=== PATIENT | male | born 1955 | race Caucasian/White ===

== ENCOUNTER 2016-12-29 17:14 | Emergency (ER) | payer MEDICARE ==
[~2016-12-29] VITALS: Ht 172.7 cm; Wt 85.0 kg
[~2016-12-29 17:14] MED LIST: Z.0.NO CURRENT MEDS
[2016-12-29 17:19] VITALS: BP 141/98; PULSE 94; RESP 16; TEMP 99.1; O2SAT 94
--- NOTE | 2016-12-29 17:26 | PD ---
Physical Exam Date Seen by Provider: Dec 29, 2016 Time Seen by Provider: 17:22 Narrative 61 YOWM C/O FALLING,CHRONIC PAIN, ALCOHOLISM. NO SI OR HI VSS. AWAITING BED PLACEMENT Data Data Last Documented VS Vital Signs Date Time Temp Pulse Resp B/P Pulse Ox O2 Delivery O2 Flow Rate FiO2 12/29/16 17:19 99.1 94 16 141/98 94 MDM Medical Record Reviewed: Yes Supervised Visit with SAHIL: Yes Esteban Chavez Dec 29, 2016 17:26
[2016-12-29 18:42] VITALS: BP 112/92; PULSE 94; RESP 18; O2SAT 97
[2016-12-29] MEDS ORDERED: CLON0.5T PO (18:42)
[2016-12-29] MEDS ORDERED: SODIUM CHLOR 0.9% 1000 ML INJ 1,000 ML IV SCH (18:53)
[2016-12-29] MEDS ORDERED: SODIUM CHLORIDE 0.9% FLUSH 10 ML FLUSH IVF PRN (19:00)
--- NOTE | 2016-12-29 19:10 | PD ---
HPI Chief Complaint: Pain: Acute or Chronic Time Seen by Provider: 18:36 Travel History International Travel<30 days: No Contact w/Intl Traveler<30days: No Traveled to known affect area: No History of Present Illness HPI The patient is a 61-year-old male who presents to the emergency department for bilateral flank pain and generalized weakness. The patient has a history of alcohol abuse and previous central pontine demyelinolysis. The patient also has a history of an extensive DVT that extended from his leg up into the abdomen. The patient states he was placed on anticoagulants, Coumadin , but was taken off of the Coumadin. The patient does have a history of multiple falls according to the family member. The patient is a 3 month history of increasing generalized weakness with difficulty getting out of the wheelchair at home. The patient states he mostly lies in bed, gets around the house in a wheelchair, but continues to drink daily. The patient states he had 2 glasses of wine earlier today. The patient's primary physician is Dr. Gonzalez. The patient denies any acute chest pain, shortness of breath, nausea, vomiting, but does complain of bilateral flank pain as well as generalized weakness. He does note he has fallen several times and struck his head, but denies any known loss of consciousness. PFSH Past Medical History Cancer: Yes (PROSTATE W/RADIATION) Cardiovascular Problems: Yes Congestive Heart Failure: Yes Cirrhosis: Yes Cerebrovascular Accident: Yes Diabetes: Yes Diminished Hearing: No Hypertension: Yes Respiratory: Yes Radiation Therapy: Yes (FOR PROSTATE CA) Past Surgical History Genitourinary Surgery: Yes (PROSTATECTOMY) Other Surgery: Yes ("about 30 back, nose, throat, hernia surgerys") Social History Alcohol Use: Yes (4-5 cups wine) Tobacco Use: Yes Substance Use: No Allergies-Medications (Allergen,Severity, Reaction): Coded Allergies: No Known Allergies (Verified , 01/30/10) Reported Meds & Prescriptions Reported Meds & Active Scripts Active Reported Clonazepam 0.5 Mg Tab 0.5 Mg PO TID Review of Systems Except as stated in HPI: all other systems reviewed are Neg HENT: Positive: Lightheadedness, No: Headaches Cardiovascular: No: Chest Pain or Discomfort Respiratory: No: Shortness of Breath Gastrointestinal: Positive: Abdominal Pain, No: Nausea, Vomiting Musculoskeletal: Positive: Myalgias, Weakness, Edema Neurologic: Positive: Weakness Physical Exam Narrative GENERAL: Awake, alert, 61-year-old male who appears his stated age and is in no acute respiratory distress. SKIN: Focused skin assessment warm/dry. Multiple areas of new and old appearing ecchymosis over the forearms and the knees bilaterally. Chronic venous stasis changes of lower extremity is bilateral. HEAD: Atraumatic. Normocephalic. EYES: Pupils equal and round. Pupils are 3 mm bilateral and reactive. ENT: No nasal bleeding or discharge. NECK: Trachea midline. No JVD. CARDIOVASCULAR: Regular rate and rhythm. No murmur appreciated. RESPIRATORY: No accessory muscle use. Diminished breath sounds in the bases bilaterally. GASTROINTESTINAL: Abdomen soft, tender bilaterally over the flanks. Positive fluid wave. No rebound tenderness. MUSCULOSKELETAL: Ecchymosis, acute and chronic noted on the forearms and knees. Full range of motion of the upper and lower extremity. Chronic venous stasis changes lower extremities with discoloration of the right foot. Doppler pulses are positive bilaterally. NEUROLOGICAL: Awake and alert. No obvious cranial nerve deficits. Motor grossly within normal limits. Normal speech. Oriented to person and place. Follow simple commands. Back: No visible ecchymosis over the flanks or lumbar thoracic spine. PSYCHIATRIC: Appropriate mood and affect; insight and judgment normal. Data Data Last Documented VS Vital Signs Date Time Temp Pulse Resp B/P Pulse Ox O2 Delivery O2 Flow Rate FiO2 12/29/16 19:15 96 Room Air 12/29/16 18:42 94 18 112/92 12/29/16 17:19 99.1 Orders Electrocardiogram (12/29/16 18:53) Ammonia (12/29/16 18:53) Complete Blood Count With Diff (12/29/16 18:53) Comprehensive Metabolic Panel (12/29/16 18:53) Creatine Kinase (Cpk) (12/29/16 18:53) Prothrombin Time / Inr (Pt) (12/29/16 18:53) Act Partial Throm Time (Ptt) (12/29/16 18:53) Thyroid Stimulating Hormone (12/29/16 18:53) Urinalysis - C+S If Indicated (12/29/16 18:53) Chest, Single Ap (12/29/16 18:53) Ct Brain W/O Iv Contrast(Rout) (12/29/16 18:53) Blood Glucose (12/29/16 18:53) Ecg Monitoring (12/29/16 18:53) Iv Access Insert/Monitor (12/29/16 18:53) Oximetry (12/29/16 18:53) Sodium Chloride 0.9% Flush (Ns Flush) (12/29/16 19:00) Sodium Chlor 0.9% 1000 Ml Inj (Ns 1000 M (12/29/16 18:53) Alcohol (Ethanol) (12/29/16 18:53) Ct Abd/Pel W Iv Contrast(Rout) (12/29/16 ) Iohexol 350 Inj (Omnipaque 350 Inj) (12/29/16 20:34) Morphine Inj (Morphine Inj) (12/29/16 21:45) Ondansetron Inj (Zofran Inj) (12/29/16 21:45) Labs Laboratory Tests Test 12/29/16 12/29/16 16:23 18:47 Ammonia 14 MCMOL/L White Blood Count 4.2 TH/MM3 Red Blood Count 3.40 MIL/MM3 Hemoglobin 13.3 GM/DL Hematocrit 39.0 % Mean Corpuscular Volume 114.6 FL Mean Corpuscular Hemoglobin 39.1 PG Mean Corpuscular Hemoglobin 34.1 % Concent Red Cell Distribution Width 15.6 % Platelet Count 108 TH/MM3 Mean Platelet Volume 7.5 FL Neutrophils (%) (Auto) 73.4 % Lymphocytes (%) (Auto) 19.2 % Monocytes (%) (Auto) 6.6 % Eosinophils (%) (Auto) 0.3 % Basophils (%) (Auto) 0.5 % Neutrophils # (Auto) 3.1 TH/MM3 Lymphocytes # (Auto) 0.8 TH/MM3 Monocytes # (Auto) 0.3 TH/MM3 Eosinophils # (Auto) 0.0 TH/MM3 Basophils # (Auto) 0.0 TH/MM3 CBC Comment DIFF FINAL Differential Comment Prothrombin Time 12.0 SEC Prothromb Time International 1.1 RATIO Ratio Activated Partial 31.9 SEC Thromboplast Time Sodium Level 134 MEQ/L Potassium Level 4.1 MEQ/L Chloride Level 97 MEQ/L Carbon Dioxide Level 27.3 MEQ/L Anion Gap 10 MEQ/L Blood Urea Nitrogen 7 MG/DL Creatinine 0.56 MG/DL Estimat Glomerular Filtration 148 ML/MIN Rate Random Glucose 90 MG/DL Calcium Level 8.8 MG/DL Total Bilirubin 0.7 MG/DL Aspartate Amino Transf 25 U/L (AST/SGOT) Alanine Aminotransferase 8 U/L (ALT/SGPT) Alkaline Phosphatase 206 U/L Total Creatine Kinase 38 U/L Total Protein 8.1 GM/DL Albumin 2.3 GM/DL Thyroid Stimulating Hormone 3.070 uIU/ML 3rd Gen Ethyl Alcohol Level 3 MG/DL [facility] Medical Decision Making Medical Screen Exam Complete: Yes Emergency Medical Condition: Yes Medical Record Reviewed: Yes Interpretation(s) EKG reveals normal sinus rhythm with a rate in 94. Low QRS voltage precordial leads. Wavy baseline. Laboratory Tests Test 12/29/16 12/29/16 16:23 18:47 Ammonia 14 MCMOL/L White Blood Count 4.2 TH/MM3 Red Blood Count 3.40 MIL/MM3 Hemoglobin 13.3 GM/DL Hematocrit 39.0 % Mean Corpuscular Volume 114.6 FL Mean Corpuscular Hemoglobin 39.1 PG Mean Corpuscular Hemoglobin 34.1 % Concent Red Cell Distribution Width 15.6 % Platelet Count 108 TH/MM3 Mean Platelet Volume 7.5 FL Neutrophils (%) (Auto) 73.4 % Lymphocytes (%) (Auto) 19.2 % Monocytes (%) (Auto) 6.6 % Eosinophils (%) (Auto) 0.3 % Basophils (%) (Auto) 0.5 % Neutrophils # (Auto) 3.1 TH/MM3 Lymphocytes # (Auto) 0.8 TH/MM3 Monocytes # (Auto) 0.3 TH/MM3 Eosinophils # (Auto) 0.0 TH/MM3 Basophils # (Auto) 0.0 TH/MM3 CBC Comment DIFF FINAL Differential Comment Prothrombin Time 12.0 SEC Prothromb Time International 1.1 RATIO Ratio Activated Partial 31.9 SEC Thromboplast Time Sodium Level 134 MEQ/L Potassium Level 4.1 MEQ/L Chloride Level 97 MEQ/L Carbon Dioxide Level 27.3 MEQ/L Anion Gap 10 MEQ/L Blood Urea Nitrogen 7 MG/DL Creatinine 0.56 MG/DL Estimat Glomerular Filtration 148 ML/MIN Rate Random Glucose 90 MG/DL Calcium Level 8.8 MG/DL Total Bilirubin 0.7 MG/DL Aspartate Amino Transf 25 U/L (AST/SGOT) Alanine Aminotransferase 8 U/L (ALT/SGPT) Alkaline Phosphatase 206 U/L Total Creatine Kinase 38 U/L Total Protein 8.1 GM/DL Albumin 2.3 GM/DL Thyroid Stimulating Hormone 3.070 uIU/ML 3rd Gen Ethyl Alcohol Level 3 MG/DL Last Impressions Head CT 12/29/161852 Signed Impressions: Service Date/Time: Thursday, December 29, 2016 20:20 - CONCLUSION: Mild atrophy. No acute findings in the brain. Possible radiopaque foreign body in the soft tissues left supraorbital region. Joseph Phillips MD Chest X-Ray 12/29/161852 Signed Impressions: Service Date/Time: Thursday, December 29, 2016 19:27 - CONCLUSION: Ill-defined opacity in the lower right lung may represent a developing infiltrate. Joseph Phillips MD Abdomen/Pelvis CT 12/29/16 0000 Signed Impressions: Service Date/Time: Thursday, December 29, 2016 20:25 - CONCLUSION: 1. Significant abdominal and pelvic ascites. 2. Small bilateral pleural effusions. Joseph Phillips MD Differential Diagnosis Differential diagnosis includes hyponatremia, dehydration, subdural hemorrhage, retroperitoneal hemorrhage, deconditioning, alcohol abuse, electrolyte abnormality. Narrative Course IV was established, labs are drawn and sent, and the patient was placed on cardiac telemetry monitoring and continuous pulse oximetry monitoring. Alcohol level was sent to lab. CT the brain and CT of the abdomen and pelvis was ordered to evaluate for possible intracranial hemorrhage and intra-abdominal injury. Laboratory evaluation is unremarkable. CT the brain is negative. Chest x-ray reveals questionable atelectasis right base. CT the abdomen and pelvis reveals significant abdominal and pelvic ascites. I had a discussion with the patient, he had a previous paracentesis done approximately 2-3 years ago. I had a discussion with the patient regarding the need to stop drinking alcohol, I will give him paperwork for outpatient therapeutic paracentesis. The patient is advised to return if symptoms worsen or progress. He is advised to stop drinking alcohol. Diagnosis Primary Impression: Ascites Qualified Code: R18.8 - Other ascites Additional Impression: Fatigue Qualified Code: R53.83 - Fatigue, unspecified type Patient Instructions: General Instructions Additional Instructions: Outpatient therapeutic paracentesis. Follow-up with your primary physician. Stop drinking alcohol. Disposition: 01 DISCHARGE HOME Condition: Stable Jurgen Kaufman MD Dec 29, 2016 19:10
[2016-12-29 19:12] LABS: AUTOMATED NEUTROPHIL # 3.1 TH/MM3 (1.8-7.7); BASOPHIL % 0.5 % (0.0-2.0); EOSINOPHIL % 0.3 % (0.0-4.0); HEMO FLAGS DIFF FINAL; LYMPH % 19.2 % (9.0-44.0); LYMPHOCYTE # 0.8 TH/MM3 (1.0-4.8); MEAN CELL VOLUME 114.6 FL (80.0-100.0); MEAN CORPUSCULAR HEMOGLOBIN 39.1 PG (27.0-34.0); MEAN CORPUSCULAR HGB CONC 34.1 % (32.0-36.0); MONO % 6.6 % (0.0-8.0); NEUT % 73.4 % (16.0-70.0); PLATELET COUNT 108 TH/MM3 (150-450); RED CELL DISTRIBUTION WIDTH 15.6 % (11.6-17.2); WHITE BLOOD COUNT 4.2 TH/MM3 (4.0-11.0)
[2016-12-29 19:15] VITALS: O2SAT 96
[2016-12-29 19:25] LABS: APTT (PATIENT) 31.9 SEC (24.3-30.1); INTERNATIONAL NORMALIZED RATIO 1.1 RATIO
[2016-12-29 19:37] LABS: ALKALINE PHOSPHATASE 206 U/L (45-117); ALT (GPT) 8 U/L (12-78); ANION GAP 10 MEQ/L (5-15); AST (GOT) 25 U/L (15-37); BICARBONATE 27.3 MEQ/L (21.0-32.0); BLOOD UREA NITROGEN 7 MG/DL (7-18); CHLORIDE 97 MEQ/L (98-107); GLOMERULAR FILTRATION RATE 148 ML/MIN (>89); POTASSIUM 4.1 MEQ/L (3.5-5.1); SODIUM (NA) 134 MEQ/L (136-145); TOTAL BILIRUBIN ADULT 0.7 MG/DL (0.2-1.0)
[2016-12-29 19:40] LABS: CREATINE KINASE 38 U/L (39-308)
--- NOTE | 2016-12-29 20:11 | RADRPT ---
EXAM DATE/TIME: 12/29/2016 19:27 [facility] COMPARISON: No previous studies available for comparison. INDICATIONS : Short of breath. MEDICAL HISTORY : None. SURGICAL HISTORY : None. ENCOUNTER: Initial ACUITY: 1 day PAIN SCORE: 0/10 LOCATION: Bilateral chest FINDINGS: There is a hazy opacity in the lower right chest which is nonspecific in appearance; this could repre sent a developing infiltrate. Lung markings are seen through this hazy opacity. The left lung is cl ear. Healed fractures posterolateral left 5th to 7th ribs. Both hemidiaphragms are well delineated. No evidence of pneumothorax. CONCLUSION: Ill-defined opacity in the lower right lung may represent a developing infiltrate. Joseph Phillips MD on December 29, 2016 at 20:08 Board Certified Radiologist. This report was verified electronically.
[2016-12-29] MEDS ORDERED: IOHEXOL 350 MG/ML 10 ML VIAL (for RAD DIAG) IV ONE (20:34)
--- NOTE | 2016-12-29 21:20 | RADRPT ---
EXAM DATE/TIME: 12/29/2016 20:20 [facility] COMPARISON: No previous studies available for comparison. INDICATIONS : Multiple falls with head trauma. RADIATION DOSE: 48.13 CTDIvol (mGy) MEDICAL HISTORY : Cerebrovascular disease. Hypertension. SURGICAL HISTORY : None. ENCOUNTER: Initial ACUITY: 1 day PAIN SCALE: 7/10 LOCATION: cranial TECHNIQUE: Multiple contiguous axial images were obtained of the head. Using automated exposure control and adj ustment of the mA and/or kV according to patient size, radiation dose was kept as low as reasonably a chievable to obtain optimal diagnostic quality images. FINDINGS: CEREBRUM: The ventricles and sulci are prominent characteristic of mild central and cortical atrophy.. No evid ence of midline shift, mass lesion, hemorrhage or acute infarction. No extra-axial fluid collections are seen. POSTERIOR FOSSA: The cerebellum and brainstem are intact. The 4th ventricle is midline. The cerebellopontine angle i s unremarkable. EXTRACRANIAL: The visualized portion of the orbits is intact. SKULL: There's a small opacity in the soft tissues of the left supraorbital region suggesting possible radio paque foreign body The calvaria is intact. No evidence of skull fracture. CONCLUSION: Mild atrophy. No acute findings in the brain. Possible radiopaque foreign body in the soft tissues left supraorbital region. Joseph Phillips MD on December 29, 2016 at 21:16 Board Certified Radiologist. This report was verified electronically.
--- NOTE | 2016-12-29 21:24 | RADRPT ---
EXAM DATE/TIME: 12/29/2016 20:25 [facility] COMPARISON: No previous studies available for comparison. INDICATIONS : Multiple falls with bilateral flank pain. IV CONTRAST: 100 cc Omnipaque 350 (iohexol) IV ORAL CONTRAST: No oral contrast ingested. RADIATION DOSE: 16.49 CTDIvol (mGy) MEDICAL HISTORY : Congestive heart failure. Carcinoma, prostate. SURGICAL HISTORY : Prostatectomy. ENCOUNTER: Initial ACUITY: 1 day PAIN SCALE: 9/10 LOCATION: Bilateral flank TECHNIQUE: Volumetric scanning of the abdomen and pelvis was performed. Using automated exposure control and ad justment of the mA and/or kV according to patient size, radiation dose was kept as low as reasonably achievable to obtain optimal diagnostic quality images. FINDINGS: There are mild bilateral pleural effusions. As a significant amount of ascites throughout the abdome n and pelvis. Multiple healed left lower lateral rib fractures. Views osteopenia is present lumbar surgery with laminectomy and lateral fusion masses. The liver, spleen, pancreas stomach kidneys, adrenal glands are grossly intact. Wall calcification n ondistended abdominal aorta and iliac vessels. No dilated loops of small or large bowel. Urinary bl adder margins are smooth. Multiple hemoclips in the central pelvis for from prior prostatectomy. CONCLUSION: 1. Significant abdominal and pelvic ascites. 2. Small bilateral pleural effusions. Joseph Phillips MD on December 29, 2016 at 21:19 Board Certified Radiologist. This report was verified electronically.
[2016-12-29] MEDS ORDERED: MORPHINE SULFATE 4 MG/ML INJ IV PUSH ONE (21:45)
[2016-12-29] MEDS ORDERED: ONDANSETRON HCL 4 MG/2 ML VIAL IV PUSH ONE (21:45)
--- NOTE | 2016-12-30 12:19 | EKG ---
Date Performed: 12/29/2016 Time Performed: 19:08:25 PTAGE: 61 years EKG: Sinus rhythm MARKED LEFT AXIS DEVIATION LOW QRS VOLTAGE IN PRECORDIAL LEADS POSSIBLE ANTERIOR MYOCARDIAL INFARCTI ON ABNORMAL ECG PREVIOUS TRACING : 10/31/2001 10.02 DOCTOR: Polo Mathews Interpretating Date/Time 12/30/2016 12:18:28
== END 2016-12-29 23:29 | disposition home or self-care (01) ==
LOC: NEPA 17:14
DX: R18.8 Other ascites (principal); R53.83 Other fatigue; I10 Essential (primary) hypertension; Z72.0 Tobacco use
CPT/HCPCS: 70450; 71010; 74177; 80053; 80307; 82140; 82550; 84443; 85025; 85610; 85730; 93005; 96374; 96375; 99285; J2270; J2405; J7030; Q9967

== ENCOUNTER 2016-12-31 15:25 | Inpatient (IN) | payer MEDICARE ==
[~2016-12-31] VITALS: Ht 172.7 cm; Wt 86.0 kg
[~2016-12-31 15:25] MED LIST changes: +CLON0.5T PO; -Z.0.NO CURRENT MEDS
[2016-12-31 15:40] VITALS: BP 159/82; PULSE 62; RESP 20; TEMP 97.6; O2SAT 100
--- NOTE | 2016-12-31 16:22 | PD ---
HPI Chief Complaint: Pain: Acute or Chronic Time Seen by Provider: 17:40 Travel History International Travel<30 days: No Contact w/Intl Traveler<30days: No Traveled to known affect area: No History of Present Illness HPI this a 61-year-old gentleman with history of alcoholic liver cirrhosis, diabetes mellitus, who was seen here 2 days ago for the same complaints that he presents for today. The patient reports pain in his shoulder back and general malaise. He states he wants to have his abdomen drained. He denies any fevers , chills. Patient states that he did drink today but only reports 2 sips. When asked why he is back today, he reports he wanted a pain shot. He also reported that he wanted to have his abdomen drained. He denies any fevers, chills. The patient does report that he has a non-productive cough. There is no shortness of breath. He does report worsening weakness that is progressive and chronic. PFSH Past Medical History Hx Anticoagulant Therapy: Yes (COUMADIN ) Cancer: Yes (PROSTATE W/RADIATION) Cardiovascular Problems: Yes Congestive Heart Failure: Yes Cirrhosis: Yes Cerebrovascular Accident: Yes Diabetes: Yes Patient Takes Glucophage: No Diminished Hearing: No Hypertension: Yes Medical other: Yes (PARACENTHESIS ) Respiratory: Yes Immunizations Current: No Radiation Therapy: Yes (FOR PROSTATE CA) Tetanus Vaccination: Unknown Past Surgical History Genitourinary Surgery: Yes (PROSTATECTOMY) Other Surgery: Yes ("about 30 back, nose, throat, hernia surgerys") Social History Alcohol Use: Yes (4-5 cups wine, ETOH ABUSE ) Tobacco Use: Yes (1/2 PPD ) Substance Use: No Allergies-Medications (Allergen,Severity, Reaction): Coded Allergies: No Known Allergies (Verified , 01/30/10) Reported Meds & Prescriptions Reported Meds & Active Scripts Active Reported Clonazepam 0.5 Mg Tab 0.5 Mg PO TID Review of Systems Except as stated in HPI: all other systems reviewed are Neg General / Constitutional: No: Fever, Chills HENT: No: Headaches, Neck Pain Cardiovascular: No: Chest Pain or Discomfort, Palpitations Respiratory: Positive: Cough, No: Shortness of Breath (nonproductive) Gastrointestinal: Positive: Abdominal Pain ([place] swelling but no pain.), No: Nausea, Vomiting, Hematemesis, Hematochezia Genitourinary: Positive: Other (difficulty urinating) Musculoskeletal: Positive: Weakness (generalized weakness), Pain (pain in his left shoulder, low back and hips. These are the same complaints he had when he was seen 2 days ago.) Neurologic: Positive: Weakness (generalized), Slurred Speech (mild), No: Headache, Change in Mentation Physical Exam Narrative GENERAL: Well-nourished, well-developed patient, in no acute respiratory distress.. SKIN: Focused skin assessment warm/dry. HEAD: Normocephalic/atraumatic. EYES: Slight icteric sclera.. No injection or drainage. NECK: Supple, trachea midline. CARDIOVASCULAR: Regular rate and rhythm without murmurs, gallops, or rubs. RESPIRATORY: Breath sounds equal bilaterally. No accessory muscle use. GASTROINTESTINAL: Abdomen soft, non-tender. There is mild fluid wave noted. There is no tense ascites noted. MUSCULOSKELETAL: No cyanosis, or trace lower extremity edema. NEUROLOGICAL: Awake and with slight slurred speech.. Cranial nerves II through XII intact. Motor and sensory grossly within normal limits. With slight slurred speech. Data Data Last Documented VS Vital Signs Date Time Temp Pulse Resp B/P Pulse Ox O2 Delivery O2 Flow Rate FiO2 12/31/16 17:29 68 21 127/77 100 Room Air 12/31/16 15:40 97.6 Orders Complete Blood Count With Diff (12/31/16 15:52) Basic Metabolic Panel (Bmp) (12/31/16 15:52) Hepatic Functional Panel (12/31/16 15:52) Urinalysis - C+S If Indicated (12/31/16 15:52) Iv Access Insert/Monitor (12/31/16 15:52) Ecg Monitoring (12/31/16 15:52) Oximetry (12/31/16 15:52) Alcohol (Ethanol) (12/31/16 15:52) Morphine Inj (Morphine Inj) (12/31/16 16:30) Morphine Inj (Morphine Inj) (12/31/16 18:45) Admit Order (Ed Use Only) (12/31/16 18:31) Labs Laboratory Tests Test 12/31/16 12/31/16 15:45 16:45 White Blood Count 4.6 TH/MM3 Red Blood Count 2.82 MIL/MM3 Hemoglobin 11.8 GM/DL Hematocrit 33.0 % Mean Corpuscular Volume 117.0 FL Mean Corpuscular Hemoglobin 41.9 PG Mean Corpuscular Hemoglobin 35.8 % Concent Red Cell Distribution Width 15.8 % Platelet Count 106 TH/MM3 Mean Platelet Volume 8.2 FL Neutrophils (%) (Auto) 71.9 % Lymphocytes (%) (Auto) 18.0 % Monocytes (%) (Auto) 9.2 % Eosinophils (%) (Auto) 0.1 % Basophils (%) (Auto) 0.8 % Neutrophils # (Auto) 3.3 TH/MM3 Lymphocytes # (Auto) 0.8 TH/MM3 Monocytes # (Auto) 0.4 TH/MM3 Eosinophils # (Auto) 0.0 TH/MM3 Basophils # (Auto) 0.0 TH/MM3 CBC Comment DIFF FINAL Differential Comment Sodium Level 137 MEQ/L Potassium Level 3.8 MEQ/L Chloride Level 101 MEQ/L Carbon Dioxide Level 27.2 MEQ/L Anion Gap 9 MEQ/L Blood Urea Nitrogen 9 MG/DL Creatinine 0.63 MG/DL Estimat Glomerular Filtration 129 ML/MIN Rate Random Glucose 83 MG/DL Calcium Level 8.3 MG/DL Total Bilirubin 0.8 MG/DL Direct Bilirubin 0.3 MG/DL Indirect Bilirubin 0.5 MG/DL Aspartate Amino Transf 23 U/L (AST/SGOT) Alanine Aminotransferase 9 U/L (ALT/SGPT) Alkaline Phosphatase 179 U/L Total Protein 7.7 GM/DL Albumin 2.2 GM/DL Ethyl Alcohol Level 4 MG/DL Urine Color LIGHT-BROWN Urine Turbidity CLEAR Urine pH 6.0 Urine Specific [place] 1.029 Urine Protein 30 mg/dL Urine Glucose (UA) NEG mg/dL Urine Ketones 40 mg/dL Urine Occult Blood TRACE Urine Nitrite NEG Urine Bilirubin NEG Urine Urobilinogen GREATER THAN 12.0 MG/DL Urine Leukocyte Esterase NEG Urine RBC 3 /hpf Urine WBC 1 /hpf Urine Squamous Epithelial <1 /hpf Cells Urine Mucus MOD /lpf Microscopic Urinalysis Comment CULT NOT INDICATED MDM Medical Decision Making Medical Screen Exam Complete: Yes Emergency Medical Condition: Yes Differential Diagnosis Acute exacerbation of chronic pain versus alcohol intoxication versus electrolyte abnormalities versus metabolic arrangement Narrative Course 61-year-old gentleman with a history of liver failure, who presents here with complaints of generalized weakness, muscle skeletal pain, abdominal distention, and multiple falls. The patient has slurred speech and appears to be generally weak appearing. He states he normally uses a walker however he can so weak he can't even use a walker. He sees Dr. Iverson as an outpatient. The patient's hemoglobin dropped greater than 1 point From 2 days ago. Bed side rectal examination showed brown stool that was trace heme positive this was performed in the presence of the nurse, Nora.. There is a call out to the [facility]. Diagnosis Primary Impression: Heme positive stool Additional Impressions: Weakness history of previous CVA. Cirrhosis of liver with ascites Admitting Information Admitting Physician Requests: Admit Errol Weiss MD Dec 31, 2016 16:22
[2016-12-31 16:30] VITALS: BP 131/89; PULSE 77; RESP 24; O2SAT 98
[2016-12-31 16:30] LABS: AUTOMATED NEUTROPHIL # 3.3 TH/MM3 (1.8-7.7); BASOPHIL % 0.8 % (0.0-2.0); EOSINOPHIL % 0.1 % (0.0-4.0); HEMO FLAGS DIFF FINAL; LYMPHOCYTE # 0.8 TH/MM3 (1.0-4.8); MEAN CORPUSCULAR HEMOGLOBIN 41.9 PG (27.0-34.0); MEAN CORPUSCULAR HGB CONC 35.8 % (32.0-36.0); MONO % 9.2 % (0.0-8.0); NEUT % 71.9 % (16.0-70.0); PLATELET COUNT 106 TH/MM3 (150-450); RED BLOOD COUNT 2.82 MIL/MM3 (4.50-5.90); RED CELL DISTRIBUTION WIDTH 15.8 % (11.6-17.2); WHITE BLOOD COUNT 4.6 TH/MM3 (4.0-11.0)
[2016-12-31] MEDS ORDERED: MORPHINE SULFATE 4 MG/ML INJ IV PUSH ONE ×2 (16:30→18:45)
[2016-12-31 16:48] LABS: BICARBONATE 27.2 MEQ/L (21.0-32.0); INDIRECT BILIRUBIN 0.5 MG/DL (0.0-0.8); POTASSIUM 3.8 MEQ/L (3.5-5.1); TOTAL BILIRUBIN ADULT 0.8 MG/DL (0.2-1.0)
[2016-12-31 17:15] LABS: BLOOD, URINE TRACE (NEG); COMMENT (UR) CULT NOT INDICATED; CULTURE IF INDICATED CULT NOT INDICATED; GLUCOSE,URINE NEG (NEG); KETONE, URINE 40 mg/dL (NEG); MUCUS URINE MOD /lpf (OCC); NITRITE,URINE NEG (NEG); SQUAMOUS EPITHELIAL CELL URINE <1 /hpf (0-5)
[2016-12-31 17:29] VITALS: BP 127/77; PULSE 68; RESP 21; O2SAT 100
[2016-12-31 17:31] LABS: URINE COLOR LIGHT-BROWN (YELLW/STRAW)
[2016-12-31 19:00] VITALS: BP 116/75; PULSE 80; RESP 18; O2SAT 97
[2016-12-31] MEDS ORDERED: SODIUM CHLORIDE 0.9% FLUSH 10 ML FLUSH IV FLUSH PRN (19:00)
[2016-12-31] MEDS ORDERED: FLUMAZENIL 0.5 MG/5 ML VIAL IV PUSH PRN ×2 (19:00→23:00)
[2016-12-31] MEDS ORDERED: LORazepam 1 MG TAB PO PRN (19:00)
[2016-12-31] MEDS ORDERED: ONDANSETRON HCL 4 MG/2 ML VIAL IV PRN (19:00)
[2016-12-31] MEDS ORDERED: LORazepam 2 MG/ML VIAL IV PUSH PRN ×7 (19:00→23:00)
[2016-12-31] MEDS ORDERED: LORazepam 2 MG TAB PO PRN ×2 (19:00→23:00)
[2016-12-31] MEDS: SODIUM CHLORIDE 0.9% FLUSH 10 ML FLUSH IV FLUSH SCH (20:53)
--- NOTE | 2016-12-31 22:45 | HHI.HP ---
[facility] Service [facility] Primary Care Physician Kavon Gonzalez MD Admission Diagnosis Heme positive stools, worsening weakness, cirrhosis with ascitis. Diagnoses: (1) Heme positive stool (2) Cirrhosis of liver with ascites (3) Weakness (4) Tobacco abuse (5) Alcohol abuse (6) Frequent falls (7) Type 2 diabetes mellitus Chief Complaint: right shoulder pain, low back pain, abdominal pain/distention - stool heme + in ER Travel History International Travel<30 Days: No Contact w/Intl Traveler <30 Da: No Traveled to Known Affected Are: No History of Present Illness Mr. Mercedes is a 61 y/o male with a history of T2DM (states he checks blood glucose at home and states blood glucose is controlled without medications), CVA , alcoholic cirrhosis, and prostate CA who presented to the ER on 12/31/16 with complaint of right shoulder pain, low back pain, and generalized weakness. His hemoglobin is noted to have dropped from 13.3 on 12/29/2016 to 11.8. Stool was checked in the ER and was trace heme positive. The patient is seen in the CDU. He states that he came here because of severe right shoulder pain that's been present for about 3 weeks and centralized low back pain that is severe and chronic. He reports no increase in lightheadedness and states that he's had chronic lightheadedness for about 7 years. He states that he fell multiple times with the last fall occurring 2 weeks ago. He states he has fallen 20 times in the last few weeks and relates his falls to hypoglycemia from taking metformin. He self discontinued medication about 3 weeks ago. He requires a walker for ambulation but states he is too weak to use a walker at this point. He reports shortness of breath with ambulation. He drinks 4-5 glasses of wine daily but states he's only had 2-3 glasses over the past couple of days. He denies any bloody or tarry stools. He complains of abdomen pain with bloating for "months". Last paracentesis was 3 years ago and he states that afterwards he felt "like a million bucks". . Review of Systems Except as stated in HPI: all other systems reviewed are Neg Past Family Social History Past Medical History Liver cirrhosis Type 2 diabetes mellitus Congestive heart failure CVA Prostate CA - s/p radiation and prostatectomy . Past Surgical History Back surgery x 4 Prostatectomy Uvulectomy Nasal surgery x 2 . Reported Medications Reported Meds & Active Scripts Active Reported Clonazepam 0.5 Mg Tab 0.5 Mg PO TID . Allergies: Coded Allergies: No Known Allergies (Verified , 01/30/10) Active Ordered Medications Current Medications Morphine Sulfate (Morphine Inj) 2 mg ONCE ONCE IV PUSH Last administered on 17:26; Start 12/31/16 at 16:30; Stop 12/31/16 at 16:31; Status DC Morphine Sulfate (Morphine Inj) 4 mg ONCE ONCE IV PUSH Last administered on 19:51; Start 12/31/16 at 18:45; Stop 12/31/16 at 18:46; Status DC Sodium Chloride (NS Flush) 2 ml UNSCH PRN IV FLUSH FLUSH AFTER USING IV ACCESS ; Start 12/31/16 at 19:00 Sodium Chloride (NS Flush) 2 ml BID IV FLUSH Last administered on 12/31/16 20: 53; Start 12/31/16 at 21:00 Ondansetron HCl (Zofran Inj) 4 mg Q6H PRN IV NAUSEA; Start 12/31/16 at 19:00 Flumazenil (Romazicon Inj) 0.2 mg Q1M PRN IV PUSH SEE LABEL COMMENTS; Start 12/31/16 at 19:00 Lorazepam (Ativan) 1 mg Q4H PRN PO CIWA 8 - 10; Start 12/31/16 at 19:00 Lorazepam (Ativan Inj) 1 mg Q4H PRN IV PUSH CIWA 8 - 10; Start 12/31/16 at 19:00 Lorazepam (Ativan) 2 mg Q2H PRN PO CIWA 11-14; Start 12/31/16 at 19:00 Lorazepam (Ativan Inj) 2 mg Q2H PRN IV PUSH CIWA 11-14; Start 12/31/16 at 19:00 Lorazepam (Ativan Inj) 2 mg Q1H PRN IV PUSH CIWA 15-20; Start 12/31/16 at 19:00 Lorazepam (Ativan Inj) 2 mg Q15M PRN IV PUSH CIWA > 20; Start 12/31/16 at 19:00 . Family History Does not report any significant family medical history . Social History Tobacco: smokes 1/2 - 3/4 PPD Alcohol: drinks 2-3 cups of alcohol per day x 2 days; 4-5 cups of alcohol per day - last alcohol intake was prior to presentation in ER "took a couple of sips " . Physical Exam Vital Signs Vital Signs Date Time Temp Pulse Resp B/P Pulse Ox O2 Delivery O2 Flow Rate FiO2 12/31/16 19:00 80 18 116/75 97 Room Air 12/31/16 17:29 68 21 127/77 100 Room Air 12/31/16 16:30 77 24 131/89 98 Room Air 12/31/16 15:40 97.6 62 20 159/82 100 12/31/16 15:40 97.6 62 20 159/82 100 Room Air 12/31/16 15:40 16 Physical Exam GENERAL: This is a well-nourished, well-developed patient, in no apparent distress. SKIN: Cool and dry. Bilateral upper extremities with multiple bruises in various stages of healing HEAD: Atraumatic. Normocephalic. EYES: No scleral icterus. No injection or drainage. ENT: Nose without bleeding, purulent drainage. NECK: Trachea midline. No JVD or lymphadenopathy. CARDIOVASCULAR: Regular rate and rhythm without murmurs, gallops, or rubs. +1-2 + pitting edema bilateral lower extremities - right lower extremity midshin to foot darkly discolored c/w venous insufficiency. RESPIRATORY: Clear to auscultation. Breath sounds equal bilaterally. No wheezes , rales, or rhonchi. GASTROINTESTINAL: Abdomen soft, no guarding, distended with + fluid wave; pain with palpation MUSCULOSKELETAL: Extremities without clubbing, cyanosis, or edema. No calf tenderness. NEUROLOGICAL: Awake and alert. Somewhat slurred speech. . Laboratory Laboratory Tests Test 12/31/16 12/31/16 15:45 16:45 White Blood Count 4.6 Red Blood Count 2.82 Hemoglobin 11.8 Hematocrit 33.0 Mean Corpuscular Volume 117.0 Mean Corpuscular Hemoglobin 41.9 Mean Corpuscular Hemoglobin 35.8 Concent Red Cell Distribution Width 15.8 Platelet Count 106 Mean Platelet Volume 8.2 Neutrophils (%) (Auto) 71.9 Lymphocytes (%) (Auto) 18.0 Monocytes (%) (Auto) 9.2 Eosinophils (%) (Auto) 0.1 Basophils (%) (Auto) 0.8 Neutrophils # (Auto) 3.3 Lymphocytes # (Auto) 0.8 Monocytes # (Auto) 0.4 Eosinophils # (Auto) 0.0 Basophils # (Auto) 0.0 CBC Comment DIFF FINAL Differential Comment Sodium Level 137 Potassium Level 3.8 Chloride Level 101 Carbon Dioxide Level 27.2 Anion Gap 9 Blood Urea Nitrogen 9 Creatinine 0.63 Estimat Glomerular Filtration 129 Rate Random Glucose 83 Calcium Level 8.3 Total Bilirubin 0.8 Direct Bilirubin 0.3 Indirect Bilirubin 0.5 Aspartate Amino Transf 23 (AST/SGOT) Alanine Aminotransferase 9 (ALT/SGPT) Alkaline Phosphatase 179 Total Protein 7.7 Albumin 2.2 Ethyl Alcohol Level 4 Urine Color LIGHT-BROWN Urine Turbidity CLEAR Urine pH 6.0 Urine Specific [place] 1.029 Urine Protein 30 Urine Glucose (UA) NEG Urine Ketones 40 Urine Occult Blood TRACE Urine Nitrite NEG Urine Bilirubin NEG Urine Urobilinogen GREATER THAN 12.0 Urine Leukocyte Esterase NEG Urine RBC 3 Urine WBC 1 Urine Squamous Epithelial <1 Cells Urine Mucus MOD Microscopic Urinalysis Comment CULT NOT INDICATED Result Diagram: 12/31/16 1545 12/31/16 1541 Assessment and Plan Problem List: (1) Heme positive stool ICD Code: R19.5 Status: Acute (2) Cirrhosis of liver with ascites ICD Code: K74.60 Status: Acute (3) Weakness ICD Code: R53.1 Status: Acute (4) Alcohol abuse ICD Code: F10.10 Status: Chronic (5) Tobacco abuse ICD Code: Z72.0 Status: Chronic (6) Type 2 diabetes mellitus ICD Code: E11.9 Status: Chronic (7) Frequent falls ICD Code: R29.6 Status: Acute Assessment and Plan Heme positive stool Anemia - Hemoglobin dropped from 13.3-11.8 - Serial H&H every 6 hours - follow results - Consult gastroenterology - appreciate assistance - Protonix 40 mg IV every 24 hours - Monitor vital signs every 4 hours Thrombocytopenia - Platelet count 106,000 - appears chronic upon review of prior labs and is likely secondary to alcoholism - Repeat CBC in a.m. and follow trends Ascites likely secondary to liver cirrhosis - CT abdomen/pelvis with IV contrast done during last ER visit for 12/29/16 showed significant abdominal and pelvic ascites - patient was supposed to follow up for outpatient paracentesis - We'll consult interventional radiology for paracentesis - assistance appreciated Alcohol abuse - Alcohol withdrawal precautions - Thiamine, multivitamin - we'll check B12 and folate levels - supplement as needed - CIWA protocol Tobacco abuse - Encourage cessation - Nicotine patch - patient aware of potential for nightmares and wants it now regardless Low back and right shoulder pain - Oxycodone 5 mg every 8 hours as needed for pain Frequent falls Weakness - Consult physical therapy for assistance with gait assessment and strengthening to prevent further debility - Consult case management to assist with safe discharge planning Type 2 diabetes mellitus - review of blood glucose levels appear within normal parameters at this time; 83 today and 90 on 12/29/2016 - We will monitor Accu-Cheks before meals and at bedtime - nursing to call for blood glucose less than 80 or greater than 250 DVT prophylaxis - SCDs Written by Eryn Smalls, acting as scribe for Dr. Morel on 12/31/16 at 22:43. patient was seen and examined today. presented with back pain and frequent falls. however was found anemic with heme-positive stool along with ascites. will consult GI and IR( for paracentesis). monitor H/H. consult PT and case management. Discussed Condition With ER physician, patient Physician Certification 2 Midnight Certification Type: Admission for Inpatient Services Order for Inpatient Services The services are ordered in accordance with Medicare regulations or non- Medicare payer requirements, as applicable. In the case of services not specified as inpatient-only, they are appropriately provided as inpatient services in accordance with the 2-midnight benchmark. Estimated LOS (days): 3 days is the estimated time the patient will need to remain in the hospital, assuming treatment plan goals are met and no additional complications. Post-Hospital Plan: Not yet determined Problem Qualifiers (1) Type 2 diabetes mellitus: Eryn Smalls Dec 31, 2016 22:45 Jannie Morel MD Dec 31, 2016 23:02
[2016-12-31] MEDS ORDERED: ONDANSETRON HCL 4 MG/2 ML VIAL IV PUSH PRN (23:00)
[2016-12-31] MEDS ORDERED: PANTOPRAZOLE SODIUM 40 MG VIAL IV PUSH SCH ×2 (23:00→23:15)
[2016-12-31 23:24] VITALS: BP 141/58; PULSE 68; RESP 18; TEMP 98.7; O2SAT 96
[2016-12-31] MEDS: NICOTINE 14 MG/24 HR PATCH T-DERMAL SCH (23:35)
[2017-01-01] VITALS (9 sets, daily range): BP systolic 107–136; BP diastolic 77–91; PULSE 75–105; RESP 18–32; TEMP 97–98.8; O2SAT 90–98
[2017-01-01 00:42] LABS: HEMATOCRIT 31.7 % (39.0-51.0)
[2017-01-01 00:44] LABS: REVIEW FLAG FINAL
[2017-01-01] MEDS: LORazepam 2 MG/ML VIAL IV PUSH PRN (05:30)
[2017-01-01 05:59] LABS: HEMATOCRIT 37.5 % (39.0-51.0)
[2017-01-01 06:04] LABS: REVIEW FLAG FINAL
[2017-01-01] MEDS: SODIUM CHLORIDE 0.9% FLUSH 10 ML FLUSH IV FLUSH SCH ×2 (08:16→21:00)
[2017-01-01] MEDS: MULTIVITAMIN TAB PO SCH (08:17)
[2017-01-01] MEDS: NICOTINE 14 MG/24 HR PATCH T-DERMAL SCH (08:17)
[2017-01-01] MEDS: REMOVE OLD PATCH T-DERMAL SCH (08:17)
[2017-01-01] MEDS: THIAMINE HCL 100 MG TAB PO SCH (08:17)
[2017-01-01] MEDS ORDERED: REMOVE OLD PATCH T-DERMAL SCH (09:00)
[2017-01-01] MEDS ORDERED: NICOTINE 14 MG/24 HR PATCH T-DERMAL SCH (09:00)
--- NOTE | 2017-01-01 09:23 | PD.CONS ---
HPI History of Present Illness This is a 61 year old male who came to the ER for evaluation of shortness of breath and abdominal swelling. While in the ER, he was found to be anemic and stool was hemoccult (+). The patient then admitted to having intermittent black starry stool. He is a poor historian and unable to tell me how long he has been having this. There is a history of liver cirrhosis in the EMR, although the patient denies ever being told that he has this. However, he also denies any hx of DM, CVA, and CHF. He lives at home and states he drinks 3-4 alcoholic drinks per day. He states he resides at home by himself, although he has a home health nurse that comes to the house to help him. He denies any nausea or vomiting. He does have a mild pain on bilateral sides and epigastric area, that he describes as an intermittent sharp, sometimes dull ache that seems to be more related to movement than food intake. He denies nausea or vomiting, reflux, heartburn, diarrhea. He denies any prior hx of PUD or NSAID use. He has never had an EGD. He does report that he had a colonoscopy about 5 years ago. (Jesenia Kaplan) PFSH Past Medical History Liver cirrhosis Type 2 diabetes mellitus Congestive heart failure CVA Prostate CA - s/p radiation and prostatectomy Skin breakdown to bilateral buttocks- duoderm in place Past Surgical History Back surgery x 4 Prostatectomy Uvulectomy Nasal surgery x 2 Colonoscopy (Jesenia Kaplan) Coded Allergies: No Known Allergies (Verified , 01/30/10) Medications Allergies Coded Allergies Type Severity Reaction Last Updated Verified No Known Allergies 01/30/10 Yes Active Scripts Medications Dose Route/Sig Days Date Category Clonazepam 0.5 Mg Tab 0.5 Mg PO TID 12/29/16 Reported Family History Mother from Leukemia. Father from colon cancer. Social History Tobacco: smokes 1/2 - 3/4 PPD Alcohol drinks 3-4 cups daily (Jesenia Kaplan) Review of Systems Constitutional: COMPLAINS OF: Fatigue, Weight loss (230----> 190), DENIES: Change in appetite Respiratory: DENIES: Cough Cardiovascular: DENIES: Chest pain Gastrointestinal: COMPLAINS OF: Abdominal pain, Black stools, Swelling of Abdomen, DENIES: Bloody stools, Constipation, Diarrhea, Nausea, Vomiting, Heartburn, Hematemesis Musculoskeletal: COMPLAINS OF: Back pain Integumentary: COMPLAINS OF: Abnormal pigmentation (skin breakdown on buttocks) Hematologic/lymphatic: COMPLAINS OF: Bruising Neurologic: DENIES: Headache Psychiatric: COMPLAINS OF: Confusion (Jesenia Kaplan [facility]GAR) GI Exam Vitals I&O Vital Signs Date Time Temp Pulse Resp B/P Pulse Ox O2 Delivery O2 Flow Rate FiO2 01/01/17 07:47 97.5 80 18 132/89 01/01/17 05:19 98.8 75 18 130/89 95 01/01/17 01:59 20 12/31/16 23:24 98.7 68 18 141/58 96 12/31/16 19:00 80 18 116/75 97 Room Air 12/31/16 17:29 68 21 127/77 100 Room Air 12/31/16 16:30 77 24 131/89 98 Room Air 12/31/16 15:40 97.6 62 20 159/82 100 12/31/16 15:40 97.6 62 20 159/82 100 Room Air 12/31/16 15:40 16 Laboratory Test 12/31/16 12/31/16 01/01/17 01/01/17 15:45 16:45 00:05 05:45 White Blood Count 4.6 TH/MM3 Red Blood Count 2.82 MIL/MM3 Hemoglobin 11.8 GM/DL 11.3 GM/DL 13.0 GM/DL Hematocrit 33.0 % 31.7 % 37.5 % Mean Corpuscular Volume 117.0 FL Mean Corpuscular Hemoglobin 41.9 PG Mean Corpuscular Hemoglobin 35.8 % Concent Red Cell Distribution Width 15.8 % Platelet Count 106 TH/MM3 Mean Platelet Volume 8.2 FL Neutrophils (%) (Auto) 71.9 % Lymphocytes (%) (Auto) 18.0 % Monocytes (%) (Auto) 9.2 % Eosinophils (%) (Auto) 0.1 % Basophils (%) (Auto) 0.8 % Neutrophils # (Auto) 3.3 TH/MM3 Lymphocytes # (Auto) 0.8 TH/MM3 Monocytes # (Auto) 0.4 TH/MM3 Eosinophils # (Auto) 0.0 TH/MM3 Basophils # (Auto) 0.0 TH/MM3 CBC Comment DIFF FINAL Differential Comment Sodium Level 137 MEQ/L Potassium Level 3.8 MEQ/L Chloride Level 101 MEQ/L Carbon Dioxide Level 27.2 MEQ/L Anion Gap 9 MEQ/L Blood Urea Nitrogen 9 MG/DL Creatinine 0.63 MG/DL Estimat Glomerular Filtration 129 ML/MIN Rate Random Glucose 83 MG/DL Calcium Level 8.3 MG/DL Total Bilirubin 0.8 MG/DL Direct Bilirubin 0.3 MG/DL Indirect Bilirubin 0.5 MG/DL Aspartate Amino Transf 23 U/L (AST/SGOT) Alanine Aminotransferase 9 U/L (ALT/SGPT) Alkaline Phosphatase 179 U/L Total Protein 7.7 GM/DL Albumin 2.2 GM/DL Ethyl Alcohol Level 4 MG/DL Urine Color LIGHT-BROWN Urine Turbidity CLEAR Urine pH 6.0 Urine Specific [place] 1.029 Urine Protein 30 mg/dL Urine Glucose (UA) NEG mg/dL Urine Ketones 40 mg/dL Urine Occult Blood TRACE Urine Nitrite NEG Urine Bilirubin NEG Urine Urobilinogen GREATER THAN 12.0 MG/DL Urine Leukocyte Esterase NEG Urine RBC 3 /hpf Urine WBC 1 /hpf Urine Squamous Epithelial <1 /hpf Cells Urine Mucus MOD /lpf Microscopic Urinalysis Comment CULT NOT INDICATED Vitamin B12 Level 918 PG/ML Folate 1.5 NG/ML Physical Examination HEENT: Normocephalic; atraumatic; no jaundice. CHEST: CTA CARDIAC: RRR ABDOMEN: Soft, nondistended, nontender; hepatosplenomegaly; bowel sounds are present in all four quadrants. EXTREMITIES: No clubbing, cyanosis, or edema. SKIN: Multiple ecchymotic areas bue. 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 (Jesenia Kaplan [facility]) Assessment and Plan Plan ASSESSMENT: - GIB, Hemoccult (+) stool with complaints of intermittent melena. Hx of liver cirrhosis in EMR- pt not aware of this. Denies any hx of PUD, NSAID use. Never had EGD. Does report intermittent melena. EGD today. PPI. - Anemia, acute blood loss. 13.0/37.5. - Abdominal pain. More related to movement. - Liver cirrhosis with ongoing ETOH abuse. LFT stable. - Right foot/toes erythematous. per primary - DM, CHF, CVA, per primary PLAN: - Plan for EGD today - Obtain consents - NPO - PPI - Monitor labs - Supportive care - Further recommendations to follow based on results of above - Pt seen and examined by Dr. Sharpe and myself and this note is written on his behalf (Jesenia Kaplan) Physician Comments Seen and examined with [employer]ER< egd planned for today. Possible colonoscopy next week. Protonix daily. Will follow, thank you (Kierra Sharpe MD) Jesenia Kaplan Jan 01, 2017 09:23 Kierra Sharpe MD Jan 01, 2017 12:52
[2017-01-01 11:20] LABS: APTT (PATIENT) 32.9 SEC (24.3-30.1); INTERNATIONAL NORMALIZED RATIO 1.2 RATIO; PROTHROMBIN TIME - PATIENT 12.9 SEC (9.8-11.6)
--- NOTE | 2017-01-01 12:55 | GIPROC ---
[facility] [address] [facility]. [facility], [address] EGD PROCEDURE REPORT EXAM DATE: 01/01/2017 PATIENT NAME: Yonny Mercedes MR #: [id number] BIRTHDATE: 1955 ATTENDING: Kierra Sharpe MD ORDER #: [id number] BOREMATIC OPERATOR: Donald Steven and Eleanor Jacobs STATUS: inpatient INDICATIONS: The patient is a 61 yr old male here for an EGD due to epigastric abdominal pain and dyspepsia PROCEDURE PERFORMED: EGD w/ biopsy MEDICATIONS: None and Per Anesthesia. TOPICAL ANESTHETIC: CONSENT: The patient understands the risks and benefits of the procedure and understands that these risks include, but are not limited to: sedation, allergic reaction, infection, perforation and/or bleeding. Alternative means of evaluation and treatment include, among others: physical exam, x-rays, and/or surgical intervention. The patient elects to proceed with this endoscopic procedure. medical equipment was checked for proper function. Hand hygiene and appropriate measures for infection prevention was taken. After the risks, benefits and alternatives of the procedure were thoroughly explained, Informed consent was verified, confirmed and timeout was successfully executed by the treatment team. The patient was anesthetized with topical anesthesia and the Pentax [id number] endoscope was introduced through the mouth and advanced to the second portion of the duodenum. Retroflexed views revealed no abnormalities The gastroscope was then slowly withdrawn and removed. ESOPHAGUS: The mucosa of the esophagus appeared normal. STOMACH: There was erythematous severe gastritis in the gastric antrum. A biopsy was performed using cold forceps. Sample sent for histology. A biopsy was performed using cold forceps. Sample sent for histology. DUODENUM: Moderate duodenal inflammation was found in the duodenal bulb. ADVERSE EVENTS: There were no complications. IMPRESSIONS: 1. The esophagus appeared normal 2. There was erythematous gastritis in the gastric antrum; biopsy was performed 3. Duodenal inflammation was found in the duodenal bulb 4. Retroflexed views revealed no abnormalities RECOMMENDATIONS: 1. Await biopsy results. Biopsy results will not be ready for 7-10 days. If you don't hear from us in two weeks, call our office for biopsy results. 2. Anti-reflux regimen 3. Continue PPI 4. Avoid NSAIDS PATIENT CONDITION: stable DISPOSITION: Inpatient REPEAT EXAM: Return 8 weeks EGD Kierra Sharpe MD eSigned: Kierra Sharpe MD 01/01/2017 12:54 PM cc: PATIENT NAME: Yonny Mercedes Claribel MR#: [id number]
[2017-01-01] MEDS ORDERED: PROPOFOL 200 MG/20 ML AMP IV ONE (13:36)
[2017-01-01 13:55] LABS: HEMATOCRIT 38.6 % (39.0-51.0); REVIEW FLAG FINAL
[2017-01-01] MEDS ORDERED: ALBUMIN HUMAN 25% 25 GM/100 ML BAGP IV ONE (16:30)
[2017-01-01 19:13] LABS: PERITONEAL WBC 880 /MM3 (0-10)
[2017-01-01] MEDS ORDERED: FUROSEMIDE 40 MG/4 ML VIAL IV PUSH ONE (19:30)
[2017-01-01 19:31] LABS: PERITONEAL HISTIOCYTES 1 %; PERITONEAL LYMPHS 28 %; PERITONEAL POLYS(SEGS) 71 %
[2017-01-01] MEDS: RESP: ALBUTEROL 2.5 MG/IPRATROPIUM 0.5 MG NEB (SCH) NEB (19:32)
--- NOTE | 2017-01-01 19:54 | RADRPT ---
EXAM DATE/TIME: 01/01/2017 19:46 [place] COMPARISON: CT ABDOMEN & PELVIS W CONTRAST, December 29, 2016, 20:25. CHEST SINGLE AP, December 29, 2016, 19:27. INDICATIONS : Shortness of breath. MEDICAL HISTORY : None. SURGICAL HISTORY : None. ENCOUNTER: Subsequent ACUITY: 1 week PAIN SCORE: 0/10 LOCATION: Bilateral chest FINDINGS: There is slight blunting of the left costophrenic angle which may reflect small effusion. Lungs are g rossly clear. Cardiomediastinal contours are satisfactory for technique and projection. CONCLUSION: Possible minimal left effusion Jayson Lynch MD on January 01, 2017 at 19:51 Board Certified Radiologist. This report was verified electronically.
[2017-01-01] MEDS ORDERED: POTASSIUM CHLORIDE 20 MEQ CONTROLLED RELEASE TAB PO ONE (20:30)
[2017-01-01 20:37] LABS: BLOOD GAS BASE EXCESS -0.8 mmol/L (-2-2); BLOOD GAS CARBOXYHEMOGLOBIN 1.4 % (0-4); BLOOD GAS HCO3 22 mmol/L (22-26); BLOOD GAS METHEMOGLOBIN 0.4 % (0-2); BLOOD GAS O2 HGB SATURATION 90 % (90-100); BLOOD GAS OXYGEN CONTENT 15.8 Vol % (12.0-20.0); BLOOD GAS PCO2 31 mmHg (38-42); BLOOD GAS PO2 61 mmHG (61-120); BLOOD GAS TOTAL HGB 12.4 G/DL (12.0-16.0); CRITICAL VALUE NO; DRAW SITE LT RADIAL; FIO2 50 %; NUMBER OF ARTERIAL PUNCTURES 1; OXYGEN DEVICE Venti Mask; STAT YES; TEMP CORR TO 98.6; ULNAR PULSE PRESENT
[2017-01-01] MEDS ORDERED: FUROSEMIDE 20 MG/2 ML VIAL IV PUSH ONE (21:00)
[2017-01-01] MEDS: PANTOPRAZOLE SOD 40 MG DELAYED RELEASE TAB PO SCH (21:00)
--- NOTE | 2017-01-01 21:49 | HHI.PR ---
Subjective Remarks Patient was seen at 9 am with late entry note. He states he is feeling weak and has mild anxiety. He denied shortness of breath. He did not have stools overnight. Objective Vitals Vital Signs Date Time Temp Pulse Resp B/P Pulse Ox O2 Delivery O2 Flow Rate FiO2 01/01/17 20:58 105 32 107/77 93 01/01/17 19:05 94 Venturi Mask 50 01/01/17 17:30 97 24 136/88 92 01/01/17 17:03 82 24 136/91 01/01/17 15:53 97.0 83 20 129/87 98 01/01/17 15:30 Venturi Mask 5.00 50 Nasal Cannula 01/01/17 15:20 92 Venturi Mask 50 01/01/17 15:06 32 90 01/01/17 13:20 84 16 99/74 91 01/01/17 13:10 89 16 94/73 91 01/01/17 12:57 98.7 80 16 98/75 92 01/01/17 07:47 97.5 80 18 132/89 01/01/17 05:19 98.8 75 18 130/89 95 01/01/17 01:59 20 12/31/16 23:24 98.7 68 18 141/58 96 I/O 12/31/16 12/31/16 12/31/16 01/01/17 01/01/17 01/01/17 07:00 15:00 23:00 07:00 15:00 23:00 Intake Total 20 ml Balance 20 ml Intake Other 20 ml Result Diagram: 01/01/17 1345 12/31/16 1545 Objective Remarks GENERAL: This is a well-nourished, well-developed patient, in no apparent distress. CARDIOVASCULAR: Regular rate and rhythm RESPIRATORY: relatively Clear to auscultation bilaterally. GASTROINTESTINAL: Abdomen soft, mild epigastric tenderness, swollen nondistended. Normal active bowel sounds MUSCULOSKELETAL: Extremities without clubbing, cyanosis, with 1-2 + edema. NEURO: Alert & Oriented x3 to person, place, time. Moves all ext x4 Procedures 01/01 Upper endoscopy A/P Problem List: (1) Heme positive stool ICD Code: R19.5 Status: Acute (2) Cirrhosis of liver with ascites ICD Code: K74.60 Status: Acute (3) Weakness ICD Code: R53.1 Status: Acute (4) Alcohol abuse ICD Code: F10.10 Status: Chronic (5) Tobacco abuse ICD Code: Z72.0 Status: Chronic (6) Type 2 diabetes mellitus ICD Code: E11.9 Status: Chronic (7) Frequent falls ICD Code: R29.6 Status: Acute Assessment and Plan Heme positive stool, suspect GI bleed Acute Anemia - Hemoglobin dropped from 13.3-11.8 at admission - Serial H&H every 6 hours has been stable - Appreciate gastroenterology service recommendations - for EGD today for further evaluation - Protonix 40 mg IV every 24 hours and change to PO - VS remains hemodynamically stable Thrombocytopenia due to liver cirrhosis and alcoholism - Ascites likely secondary to liver cirrhosis - CT abdomen/pelvis with IV contrast done during last ER visit for 12/29/16 showed significant abdominal and pelvic ascites - for paracentesis today with IR Alcohol abuse - Alcohol withdrawal precautions with CIWA protocol - Thiamine, multivitamin Tobacco abuse cessation counseling - Nicotine patch - patient aware of potential for nightmares and wants it now regardless Low back and right shoulder pain - Oxycodone 5 mg every 8 hours as needed for pain Frequent falls/ Weakness - Consult physical therapy for assistance with gait assessment and strengthening to prevent further debility - Consult case management to assist with safe discharge planning Type 2 diabetes mellitus, overall controlled - We will monitor Accu-Cheks before meals and at bedtime DVT prophylaxis - SCDs, no anticoagulation due to GIBleed Problem Qualifiers (1) Type 2 diabetes mellitus: María Wilson MD Jan 01, 2017 21:49
[2017-01-02] VITALS (23 sets, daily range): BP systolic 83–152; BP diastolic 62–79; PULSE 78–122; RESP 14–20; TEMP 97.8–98.2; O2SAT 92–97
[2017-01-02] MEDS: LORazepam 2 MG/ML VIAL IV PUSH PRN ×2 (02:55→23:48)
[2017-01-02] MEDS: RESP: ALBUTEROL 2.5 MG/IPRATROPIUM 0.5 MG NEB (SCH) NEB ×4 (07:29→20:07)
[2017-01-02] MEDS: MULTIVITAMIN TAB PO SCH (08:42)
[2017-01-02] MEDS: THIAMINE HCL 100 MG TAB PO SCH (08:42)
[2017-01-02] MEDS: NICOTINE 14 MG/24 HR PATCH T-DERMAL SCH (08:43)
[2017-01-02] MEDS: REMOVE OLD PATCH T-DERMAL SCH (08:45)
--- NOTE | 2017-01-02 10:16 | HHI.GIFU ---
Subjective Remarks Pt is resting comfortably in his chair. Denies n/v, diarrhea, blood in stool, black stool. His last BM was 2 days ago and he says it wasn't black. Objective Vitals I&O Vital Signs Date Time Temp Pulse Resp B/P Pulse Ox O2 Delivery O2 Flow Rate FiO2 01/02/17 07:45 93 Nasal Cannula 2.00 01/02/17 07:45 97 01/02/17 07:45 98.0 97 20 109/79 96 01/02/17 07:34 94 Venturi Mask 6.00 50 01/02/17 00:30 97.8 78 14 152/78 92 01/01/17 20:58 105 32 107/77 93 01/01/17 20:00 92 Venturi Mask 6.00 01/01/17 19:05 94 Venturi Mask 50 01/01/17 17:30 97 24 136/88 92 01/01/17 17:03 82 24 136/91 01/01/17 15:53 97.0 83 20 129/87 98 01/01/17 15:30 Venturi Mask 5.00 50 Nasal Cannula 01/01/17 15:20 92 Venturi Mask 50 01/01/17 15:06 32 90 01/01/17 13:20 84 16 99/74 91 01/01/17 13:10 89 16 94/73 91 01/01/17 12:57 98.7 80 16 98/75 92 I/O 01/01/17 01/01/17 01/01/17 01/02/17 01/02/17 01/02/17 07:00 15:00 23:00 07:00 15:00 23:00 Intake Total 20 ml 240 ml 240 ml Output Total 175 ml Balance 20 ml 240 ml 65 ml Intake Oral 240 ml 240 ml Other 20 ml Output Urine Total 175 ml # Voids 2 Laboratory Laboratory Tests Test 01/01/17 01/01/17 01/01/17 01/01/17 10:39 13:45 16:17 20:30 Prothrombin Time 12.9 Prothromb Time International 1.2 Ratio Activated Partial 32.9 Thromboplast Time Hemoglobin 12.9 Hematocrit 38.6 Peritoneal Fluid WBC 880 Peritoneal Fluid RBC [id number] Peritoneal Fluid Neutrophils 71 Peritoneal Fluid Lymphocytes 28 Peritoneal Fluid Histiocytes 1 Peritoneal Fluid Total Protein 3.3 Peritoneal Fluid Albumin 1.1 Peritoneal Fluid LDH 132 Peritoneal Fluid Glucose 85 Blood Gas Puncture Site LT RADIAL Blood Gas Patient Temperature 98.6 Blood Gas HCO3 22 Blood Gas Base Excess -0.8 Blood Gas Oxygen Saturation 90 Arterial Blood pH 7.48 Arterial Blood Partial 31 Pressure CO2 Arterial Blood Partial 61 Pressure O2 Arterial Blood Oxygen Content 15.8 Arterial Blood 1.4 Carboxyhemoglobin Arterial Blood Methemoglobin 0.4 Blood Gas Hemoglobin 12.4 Oxygen Delivery Device Venti Mask Blood Gas Inspired Oxygen 50 Imaging Last Impressions Chest X-Ray 01/01/17 0000 Signed Impressions: Service Date/Time: Sunday, January 01, 2017 19:46 - CONCLUSION: Possible minimal left effusion Jayson Lynch MD Physical Exam HEENT: EOMI; normocephalic; atraumatic; no jaundice. NECK: Neck is supple CHEST: rhonchi throughout CARDIAC: Regular rate and rhythm with no murmur gallop or rubs. ABDOMEN: Soft, distended, nontender; no hepatosplenomegaly; bowel sounds are present in all four quadrants. EXTREMITIES: No clubbing, cyanosis, or edema. SKIN: ecchymoses on arms. OCCASIONAL CAREGIVER: No focal deficits; alert and oriented times three. Assessment and Plan Plan ASSESSMENT: - GIB, Hemoccult (+) stool with complaints of intermittent melena. Hx of liver cirrhosis in EMR- pt not aware of this. Denies any hx of PUD, NSAID use. Never had EGD. s/p EGD -----> erythematous gastritis gastric antrum, duodenal inflammation, duodenal bulb. Pt had BM 2d and says it was not black like the others. - Anemia, acute blood loss. 12.9, 38.6 - Liver cirrhosis with ongoing ETOH abuse. LFT stable. s/p paracentesis PLAN: - continue PPI - Monitor labs - Supportive care - consider colonoscopy next week - repeat EGD in 3 weeks - Pt seen and examined by Dr. Almodovar and myself and this note is written on his behalf Katie Paz Jan 02, 2017 10:16
[2017-01-02 10:22] LABS: HEMATOCRIT 35.3 % (39.0-51.0); MEAN CELL VOLUME 113.8 FL (80.0-100.0); MEAN CORPUSCULAR HEMOGLOBIN 38.6 PG (27.0-34.0); PLATELET COUNT 107 TH/MM3 (150-450); RED CELL DISTRIBUTION WIDTH 16.1 % (11.6-17.2); REVIEW FLAG FINAL
--- NOTE | 2017-01-02 13:22 | HHI.PR ---
Subjective Remarks Patient had been in bedside chair most of the morning, recently returning to bed prior to evaluation. Patient reports that he is doing well with no pain at this time. Patient denies having any black or tarry stools. Objective Vitals Vital Signs Date Time Temp Pulse Resp B/P Pulse Ox O2 Delivery O2 Flow Rate FiO2 01/02/17 07:45 93 Nasal Cannula 2.00 01/02/17 07:45 97 01/02/17 07:45 98.0 97 20 109/79 96 01/02/17 07:34 94 Venturi Mask 6.00 50 01/02/17 00:30 97.8 78 14 152/78 92 01/01/17 20:58 105 32 107/77 93 01/01/17 20:00 92 Venturi Mask 6.00 01/01/17 19:05 94 Venturi Mask 50 01/01/17 17:30 97 24 136/88 92 01/01/17 17:03 82 24 136/91 01/01/17 15:53 97.0 83 20 129/87 98 01/01/17 15:30 Venturi Mask 5.00 50 Nasal Cannula 01/01/17 15:20 92 Venturi Mask 50 01/01/17 15:06 32 90 01/01/17 13:20 84 16 99/74 91 01/01/17 13:10 89 16 94/73 91 I/O 01/01/17 01/01/17 01/01/17 01/02/17 01/02/17 01/02/17 07:00 15:00 23:00 07:00 15:00 23:00 Intake Total 20 ml 240 ml 240 ml Output Total 175 ml Balance 20 ml 240 ml 65 ml Intake Oral 240 ml 240 ml Other 20 ml Output Urine Total 175 ml # Voids 2 Result Diagram: 01/02/17 1003 12/31/16 1545 Objective Remarks GENERAL: This is a well-nourished, well-developed patient, in no apparent distress. CARDIOVASCULAR: Regular rate and rhythm RESPIRATORY: Clear to auscultation bilaterally. GASTROINTESTINAL: Abdomen soft, mild epigastric tenderness, nondistended. Normal active bowel sounds MUSCULOSKELETAL: Extremities without clubbing, cyanosis, with 1-2 + edema. NEURO: Alert & Oriented x3 to person, place, time. Moves all ext x4 Procedures 4/7 Upper endoscopy Urinary Catheter: No Vascular Central Line Catheter: No A/P Problem List: (1) Heme positive stool ICD Code: R19.5 Status: Acute (2) Cirrhosis of liver with ascites ICD Code: K74.60 Status: Chronic (3) Weakness ICD Code: R53.1 Status: Acute (4) Alcohol abuse ICD Code: F10.10 Status: Chronic (5) Tobacco abuse ICD Code: Z72.0 Status: Chronic (6) Type 2 diabetes mellitus ICD Code: E11.9 Status: Chronic (7) Frequent falls ICD Code: R29.6 Status: Acute Assessment and Plan Anemia, suspect GI bleed. - Hemoglobin dropped from 13.3-11.8 at admission and then improved; past 24 hours, has decreased from 13.0-12.0. Patient asymptomatic. - Appreciate gastroenterology service recommendations -EGD 01/01/17 showing gastritis in the gastric antrum, biopsy performed; duodenal inflammation was found at that duodenal bulb -GI, patient may require colonoscopy next week, as Hg not remaining stable; need to hold off on discharge at this time - Protonix 40 mg IV every 24 hours - VS remains hemodynamically stable Thrombocytopenia. Platelet count 107k -due to liver cirrhosis and alcoholism -Monitor Ascites likely secondary to liver cirrhosis -Patient status post paracentesis on 01/01/17 Alcohol abuse - Alcohol withdrawal precautions with [facility] protocol - Thiamine, multivitamin Tobacco abuse cessation counseling - Nicotine patch, to be removed at night to reduce likelihood of nightmares Low back and right shoulder pain - Oxycodone 5 mg every 8 hours as needed for pain Frequent falls/ Weakness. - Consult physical therapy for assistance with gait assessment and strengthening to prevent further debility -PT recommends patient did not get out of bed independently; discharged to PT at rehabilitation - Consult case management to assist with safe discharge planning; counseling case manager noted that patient was active with Nurse hearing aid consultant prior to hospitalization Type 2 diabetes mellitus, overall controlled -monitor DVT prophylaxis - SCDs, hold pharmacologic anticoagulation due to GI Bleed -Hep-Lock IV fluids Electrolytes: Within normal limits Problem Qualifiers (1) Type 2 diabetes mellitus: Mary Deutsch MD Jan 02, 2017 13:22
[2017-01-02] MEDS: SODIUM CHLOR 0.9% 1000 ML INJ 1,000 ML IV SCH (18:00)
[2017-01-02] MEDS: PANTOPRAZOLE SOD 40 MG DELAYED RELEASE TAB PO SCH (21:52)
[2017-01-02] MEDS: SODIUM CHLORIDE 0.9% FLUSH 10 ML FLUSH IV FLUSH SCH (21:53)
[2017-01-03] VITALS (30 sets, daily range): BP systolic 87–119; BP diastolic 52–86; PULSE 80–108; RESP 16–22; TEMP 97.8–98.6; O2SAT 90–98
[2017-01-03] MEDS: SODIUM CHLOR 0.9% 1000 ML INJ 1,000 ML IV SCH ×2 (02:00→10:52)
[2017-01-03 05:20] LABS: HEMATOCRIT 32.3 % (39.0-51.0); MEAN CELL VOLUME 117.4 FL (80.0-100.0); MEAN CORPUSCULAR HEMOGLOBIN 40.5 PG (27.0-34.0); MEAN CORPUSCULAR HGB CONC 34.5 % (32.0-36.0); PLATELET COUNT 90 TH/MM3 (150-450); RED BLOOD COUNT 2.75 MIL/MM3 (4.50-5.90); RED CELL DISTRIBUTION WIDTH 15.4 % (11.6-17.2); WHITE BLOOD COUNT 5.8 TH/MM3 (4.0-11.0)
[2017-01-03 05:38] LABS: BICARBONATE 29.6 MEQ/L (21.0-32.0); POTASSIUM 3.4 MEQ/L (3.5-5.1)
[2017-01-03] MEDS ORDERED: DEXT 5%-NACL 0.9% 500 ML INJ 500 ML IV ONE (05:45)
[2017-01-03 06:02] LABS: REVIEW FLAG FINAL
[2017-01-03] MEDS: NICOTINE 14 MG/24 HR PATCH T-DERMAL SCH (08:40)
[2017-01-03] MEDS: REMOVE OLD PATCH T-DERMAL SCH (08:40)
[2017-01-03] MEDS: THIAMINE HCL 100 MG TAB PO SCH (08:40)
[2017-01-03] MEDS: MULTIVITAMIN TAB PO SCH (08:40)
[2017-01-03] MEDS: SODIUM CHLORIDE 0.9% FLUSH 10 ML FLUSH IV FLUSH SCH ×2 (08:49→21:10)
[2017-01-03] MEDS: RESP: ALBUTEROL 2.5 MG/IPRATROPIUM 0.5 MG NEB (SCH) NEB ×3 (09:42→21:46)
[2017-01-03] MEDS ORDERED: POTASSIUM CHLORIDE 10 MEQ CONTROLLED RELEASE TAB PO ONE (10:45)
--- NOTE | 2017-01-03 10:48 | HHI.PR ---
Subjective Remarks No acute events overnight. Afebrile, vital signs stable. Patient with limited urine output 300 cc over the last 24 hours. Has not had a bowel movement in 2 days. Hemoglobin continues to drop. Objective Vitals Vital Signs Date Time Temp Pulse Resp B/P Pulse Ox O2 Delivery O2 Flow Rate FiO2 01/03/17 09:43 90 Nasal Cannula 4.00 01/03/17 06:42 98.6 105 16 117/77 94 01/03/17 06:00 82 01/03/17 05:00 82 01/03/17 04:00 84 01/03/17 03:11 95 Nasal Cannula 3.00 01/03/17 03:00 84 01/03/17 02:00 88 01/03/17 01:00 94 01/03/17 00:52 98.6 96 16 98/68 93 01/03/17 00:51 94 Nasal Cannula 3.00 01/03/17 00:00 96 01/02/17 23:00 96 01/02/17 22:00 100 01/02/17 21:00 102 01/02/17 20:23 94 Nasal Cannula 3.00 01/02/17 20:09 95 Nasal Cannula 4.00 01/02/17 20:05 98.2 117 16 83/63 94 01/02/17 20:00 104 01/02/17 19:00 122 01/02/17 18:00 101 01/02/17 17:00 98 01/02/17 16:55 97 Nasal Cannula 2.00 01/02/17 15:50 101 01/02/17 15:50 97.9 101 20 94/68 94 01/02/17 15:50 105 01/02/17 15:50 98.0 105 20 84/62 95 01/02/17 15:00 110 01/02/17 14:18 97.9 101 20 94/68 94 01/02/17 14:18 101 01/02/17 14:00 110 01/02/17 13:00 96 01/02/17 12:00 90 01/02/17 11:00 108 I/O 01/02/17 01/02/17 01/02/17 01/03/17 01/03/17 01/03/17 07:00 15:00 23:00 07:00 15:00 23:00 Intake Total 240 ml 240 ml 600 ml 480 ml Output Total 175 ml 125 ml 0 ml Balance 240 ml 65 ml 475 ml 480 ml Intake Oral 240 ml 240 ml 600 ml 480 ml Output Urine Total 175 ml 125 ml 0 ml # Voids 2 # Bowel Movements 0 0 Result Diagram: 01/03/1740401/03/17404 Objective Remarks GENERAL: This is a well-nourished, well-developed patient, in no apparent distress. CARDIOVASCULAR: Regular rate and rhythm RESPIRATORY: Clear to auscultation bilaterally. GASTROINTESTINAL: Abdomen soft, nontender to palpation, hypoactive bowel sounds. Distended likely ascitic fluid. MUSCULOSKELETAL: Extremities without clubbing, cyanosis, with 1-2 + edema. Skin: Patient with stage I decubitus ulcer on the sacrum NEURO: Alert & Oriented x3 to person, place, time. Moves all ext x4 Procedures 01/01 Upper endoscopy A/P Problem List: (1) Heme positive stool ICD Code: R19.5 Status: Acute (2) Cirrhosis of liver with ascites ICD Code: K74.60 Status: Chronic (3) Weakness ICD Code: R53.1 Status: Acute (4) Alcohol abuse ICD Code: F10.10 Status: Chronic (5) Tobacco abuse ICD Code: Z72.0 Status: Chronic (6) Type 2 diabetes mellitus ICD Code: E11.9 Status: Resolved (7) Frequent falls ICD Code: R29.6 Status: Acute Assessment and Plan Anemia, suspect GI bleed. - Hemoglobin dropped from 13.3-11.1. Patient asymptomatic. - Appreciate gastroenterology service recommendations -EGD 01/01/17 showing gastritis in the gastric antrum, biopsy performed; duodenal inflammation was found at that duodenal bulb -GI, patient may require colonoscopy next week, as Hg not remaining stable; need to hold off on discharge at this time - Protonix 40 mg IV every 24 hours - VS remains hemodynamically stable Thrombocytopenia. Platelet count 90k -due to liver cirrhosis and alcoholism -Monitor Decreased urine output. Patient status post 500 cc bolus and currently on normal saline at 125 cc/hour. Creatinine stable, BUN 16. Monitor Renal ultrasound Ascites likely secondary to liver cirrhosis -Patient status post paracentesis on 01/01/17 Alcohol abuse - Alcohol withdrawal precautions with [facility] protocol - Thiamine, multivitamin Tobacco abuse cessation counseling - Nicotine patch, to be removed at night to reduce likelihood of nightmares Low back and right shoulder pain - Oxycodone 5 mg every 8 hours as needed for pain Frequent falls/ Weakness. - Consult physical therapy for assistance with gait assessment and strengthening to prevent further debility -PT recommends patient did not get out of bed independently; discharged to PT at rehabilitation - Consult case management to assist with safe discharge planning; counseling case manager noted that patient was active with Nurse correctional corporal prior to hospitalization Type 2 diabetes mellitus, overall controlled -monitor DVT prophylaxis - SCDs, hold pharmacologic anticoagulation due to GI Bleed -Hep-Lock IV fluids Electrolytes: Replete when necessary Problem Qualifiers (1) Type 2 diabetes mellitus: Rachana Ocasio MD R3 Jan 03, 2017 10:48
--- NOTE | 2017-01-03 11:53 | HHI.GIFU ---
Subjective Remarks Pt sitting comfortably in chair. Denies nausea, vomiting. Has not had BM today. Discussed doing colonoscopy tomorrow and he mentioned that he had one about 5 years ago but could not remember if it was at [place] or possibly in [place]. Could not provide further details. Objective Vitals I&O Vital Signs Date Time Temp Pulse Resp B/P Pulse Ox O2 Delivery O2 Flow Rate FiO2 01/03/17 09:43 90 Nasal Cannula 4.00 01/03/17 06:42 98.6 105 16 117/77 94 01/03/17 06:00 82 01/03/17 05:00 82 01/03/17 04:00 84 01/03/17 03:11 95 Nasal Cannula 3.00 01/03/17 03:00 84 01/03/17 02:00 88 01/03/17 01:00 94 01/03/17 00:52 98.6 96 16 98/68 93 01/03/17 00:51 94 Nasal Cannula 3.00 01/03/17 00:00 96 01/02/17 23:00 96 01/02/17 22:00 100 01/02/17 21:00 102 01/02/17 20:23 94 Nasal Cannula 3.00 01/02/17 20:09 95 Nasal Cannula 4.00 01/02/17 20:05 98.2 117 16 83/63 94 01/02/17 20:00 104 01/02/17 19:00 122 01/02/17 18:00 101 01/02/17 17:00 98 01/02/17 16:55 97 Nasal Cannula 2.00 01/02/17 15:50 101 01/02/17 15:50 97.9 101 20 94/68 94 01/02/17 15:50 105 01/02/17 15:50 98.0 105 20 84/62 95 01/02/17 15:00 110 01/02/17 14:18 97.9 101 20 94/68 94 01/02/17 14:18 101 01/02/17 14:00 110 01/02/17 13:00 96 01/02/17 12:00 90 I/O 01/02/17 01/02/17 01/02/17 01/03/17 01/03/17 01/03/17 07:00 15:00 23:00 07:00 15:00 23:00 Intake Total 240 ml 240 ml 600 ml 480 ml Output Total 175 ml 125 ml 0 ml Balance 240 ml 65 ml 475 ml 480 ml Intake Oral 240 ml 240 ml 600 ml 480 ml Output Urine Total 175 ml 125 ml 0 ml # Voids 2 # Bowel Movements 0 0 Laboratory Laboratory Tests Test 01/03/17 04:05 White Blood Count 5.8 Red Blood Count 2.75 Hemoglobin 11.1 Hematocrit 32.3 Mean Corpuscular Volume 117.4 Mean Corpuscular Hemoglobin 40.5 Mean Corpuscular Hemoglobin 34.5 Concent Red Cell Distribution Width 15.4 Platelet Count 90 Mean Platelet Volume 7.7 Sodium Level 138 Potassium Level 3.4 Chloride Level 101 Carbon Dioxide Level 29.6 Anion Gap 7 Blood Urea Nitrogen 16 Creatinine 0.66 Estimat Glomerular Filtration 122 Rate Random Glucose 112 Calcium Level 8.0 Imaging Last Impressions Chest X-Ray 01/01/17 0000 Signed Impressions: Service Date/Time: Sunday, January 01, 2017 19:46 - CONCLUSION: Possible minimal left effusion Jayson Lynch MD Physical Exam HEENT: EOMI; normocephalic; atraumatic; no jaundice. NECK: Neck is supple CHEST: coarse breath sounds CARDIAC: Regular rate and rhythm with no murmur gallop or rubs. ABDOMEN: Soft, distended, mildly tender; no hepatosplenomegaly; bowel sounds are present in all four quadrants. EXTREMITIES: No clubbing, cyanosis, or edema. SKIN: ecchymoses on arms. ESOL TEACHER ASSISTANT: No focal deficits; alert and oriented times three. Assessment and Plan Plan ASSESSMENT: - GIB, Hemoccult (+) stool with complaints of intermittent melena but non recently. Hx of liver cirrhosis in EMR- pt not aware of this. Denies any hx of PUD, NSAID use. Never had EGD. s/p EGD -----> erythematous gastritis gastric antrum, duodenal inflammation, duodenal bulb. Biopsies pending. - Anemia, acute blood loss. 11.1, 32.3, down from 13.0 37.5 2 days ago. Will do colonoscopy tomorrow. D/w with pt possible risks including infection, perforation, bleeding, pt verbalized understanding and wants to go ahead with colonoscopy. - Liver cirrhosis with ongoing ETOH abuse. LFT stable. s/p paracentesis PLAN: - colonoscopy in a.m. - clear liquids today - bowel prep with GoLytely this evening - NPO after midnight - obtain consents - continue PPI - Monitor labs - repeat EGD in 3 weeks - Pt seen and examined by Dr. Almodovar and myself and this note is written on his behalf Katie Paz Jan 03, 2017 11:53
[2017-01-03] MEDS ORDERED: PEG (High)/E-LYTE SOLN 4000 ML BTL PO ONE (16:00)
[2017-01-03] MEDS: PANTOPRAZOLE SOD 40 MG DELAYED RELEASE TAB PO SCH (21:10)
--- NOTE | 2017-01-03 22:51 | RADRPT ---
EXAM DATE/TIME: 01/03/2017 22:04 [place] COMPARISON: No previous studies available for comparison. INDICATIONS : Decreased urine output. MEDICAL HISTORY : Hypertension. Cerebrovascular accident. Congestive heart failure. Anticoagulant therapy, Coumadin . Diabetes. Prostate cancer. Radiation therapy. Cirrhosis. SURGICAL HISTORY : Prostatectomy. Back surgery x 4. Paracentesis. ENCOUNTER: Initial ACUITY: 1 day PAIN SCORE: 2/10 LOCATION: Bilateral flank MEASUREMENTS: RIGHT KIDNEY: 11.2 x 5.9 x 5.8 cm LEFT KIDNEY: 10.8 x 5.1 x 5.5 cm FINDINGS: Kidneys are mildly echogenic but otherwise unremarkable. No hydronephrosis. Moderate ascites. Bladder decompressed by [place]. CONCLUSION: 1. Kidneys mildly echogenic characteristic of mild medical renal disease. No hydronephrosis. Moderate ascites. Esteban Lee MD on January 03, 2017 at 22:49 Board Certified Radiologist. This report was verified electronically.
[2017-01-04] VITALS (26 sets, daily range): BP systolic 104–141; BP diastolic 77–92; PULSE 89–117; RESP 18–20; TEMP 97.7–98.5; O2SAT 92–98
[2017-01-04] MEDS: SODIUM CHLOR 0.9% 1000 ML INJ 1,000 ML IV SCH ×3 (02:01→17:48)
[2017-01-04 06:15] LABS: AUTOMATED NEUTROPHIL # 3.6 TH/MM3 (1.8-7.7); BASOPHIL % 0.4 % (0.0-2.0); EOSINOPHIL % 0.4 % (0.0-4.0); HEMO FLAGS DIFF FINAL; LYMPH % 13.2 % (9.0-44.0); LYMPHOCYTE # 0.6 TH/MM3 (1.0-4.8); MEAN CORPUSCULAR HEMOGLOBIN 39.7 PG (27.0-34.0); MEAN CORPUSCULAR HGB CONC 35.1 % (32.0-36.0); MONO % 8.7 % (0.0-8.0); NEUT % 77.3 % (16.0-70.0); PLATELET COUNT 119 TH/MM3 (150-450); RED BLOOD COUNT 2.92 MIL/MM3 (4.50-5.90); RED CELL DISTRIBUTION WIDTH 15.4 % (11.6-17.2); WHITE BLOOD COUNT 4.7 TH/MM3 (4.0-11.0)
[2017-01-04 06:38] LABS: ALT (GPT) LESS THAN 6 U/L (12-78); ANION GAP 8 MEQ/L (5-15); AST (GOT) 14 U/L (15-37); BICARBONATE 27.3 MEQ/L (21.0-32.0); BLOOD UREA NITROGEN 15 MG/DL (7-18); CHLORIDE 105 MEQ/L (98-107); GLOMERULAR FILTRATION RATE 129 ML/MIN (>89); SODIUM (NA) 140 MEQ/L (136-145)
[2017-01-04 07:03] LABS: ALKALINE PHOSPHATASE 129 U/L (45-117); TOTAL BILIRUBIN ADULT 0.7 MG/DL (0.2-1.0)
[2017-01-04] MEDS: RESP: ALBUTEROL 2.5 MG/IPRATROPIUM 0.5 MG NEB (SCH) NEB ×4 (07:35→18:56)
[2017-01-04] MEDS: REMOVE OLD PATCH T-DERMAL SCH (09:00)
[2017-01-04] MEDS: MULTIVITAMIN TAB PO SCH (09:27)
[2017-01-04] MEDS: SODIUM CHLORIDE 0.9% FLUSH 10 ML FLUSH IV FLUSH SCH ×2 (09:27→21:00)
[2017-01-04] MEDS: THIAMINE HCL 100 MG TAB PO SCH (09:27)
[2017-01-04] MEDS: NICOTINE 14 MG/24 HR PATCH T-DERMAL SCH (09:29)
--- NOTE | 2017-01-04 10:59 | HHI.GIFU ---
Subjective Remarks Pt lethargic. Only took 1/2 the Golytely, no bm with this. Unsure if he will be able to take the other 1/2 today. No active Gi bleeding. Pt very lethargic , he is oriented to self, place, and time, but seems inappropriate at times. Objective Vitals I&O Vital Signs Date Time Temp Pulse Resp B/P Pulse Ox O2 Delivery O2 Flow Rate FiO2 01/04/17 08:00 101 01/04/17 07:35 94 Nasal Cannula 3.00 01/04/17 07:00 92 Simple Mask 1.50 01/04/17 07:00 95 01/04/17 07:00 97.8 104 18 104/77 92 01/04/17 06:19 96 01/04/17 05:01 95 01/04/17 04:00 90 01/04/17 03:00 100 01/04/17 03:00 97 Nasal Cannula 1.50 01/04/17 03:00 98.0 89 20 113/81 97 01/04/17 02:00 100 01/04/17 01:00 102 01/04/17 00:06 117 01/03/17 23:20 97.8 102 22 119/86 97 01/03/17 23:20 97 Nasal Cannula 1.50 01/03/17 23:00 95 01/03/17 22:14 91 01/03/17 21:46 95 Nasal Cannula 2.00 01/03/17 21:00 92 01/03/17 20:00 96 01/03/17 19:30 95 Nasal Cannula 1.00 01/03/17 19:20 98 Nasal Cannula 2.00 01/03/17 19:20 98.0 93 18 113/83 98 01/03/17 19:00 96 01/03/17 18:00 88 01/03/17 17:00 90 01/03/17 16:00 90 01/03/17 15:15 81 01/03/17 15:15 96 Nasal Cannula 01/03/17 15:15 98.0 81 18 106/74 96 01/03/17 15:00 82 01/03/17 14:00 88 01/03/17 13:00 90 01/03/17 12:00 95 Nasal Cannula 01/03/17 12:00 97.9 89 20 87/52 95 01/03/17 12:00 89 01/03/17 11:00 108 I/O 01/03/17 01/03/17 01/03/17 01/04/17 01/04/17 01/04/17 07:00 15:00 23:00 07:00 15:00 23:00 Intake Total 480 ml 1978 ml 3222 ml Output Total 0 ml 250 ml 100 ml Balance 480 ml 1728 ml 3122 ml Intake Oral 480 ml 620 ml 2200 ml IV Total 1358 ml 1022 ml Output Urine Total 0 ml 250 ml 100 ml # Bowel Movements 0 0 0 Laboratory Laboratory Tests Test 01/04/17 05:44 White Blood Count 4.7 Red Blood Count 2.92 Hemoglobin 11.6 Hematocrit 33.0 Mean Corpuscular Volume 113.0 Mean Corpuscular Hemoglobin 39.7 Mean Corpuscular Hemoglobin 35.1 Concent Red Cell Distribution Width 15.4 Platelet Count 119 Mean Platelet Volume 7.2 Neutrophils (%) (Auto) 77.3 Lymphocytes (%) (Auto) 13.2 Monocytes (%) (Auto) 8.7 Eosinophils (%) (Auto) 0.4 Basophils (%) (Auto) 0.4 Neutrophils # (Auto) 3.6 Lymphocytes # (Auto) 0.6 Monocytes # (Auto) 0.4 Eosinophils # (Auto) 0.0 Basophils # (Auto) 0.0 CBC Comment DIFF FINAL Differential Comment Sodium Level 140 Potassium Level 4.0 Chloride Level 105 Carbon Dioxide Level 27.3 Anion Gap 8 Blood Urea Nitrogen 15 Creatinine 0.63 Estimat Glomerular Filtration 129 Rate Random Glucose 107 Calcium Level 7.9 Total Bilirubin 0.7 Aspartate Amino Transf 14 (AST/SGOT) Alanine Aminotransferase LESS THAN 6 (ALT/SGPT) Alkaline Phosphatase 129 Total Protein 6.2 Albumin 1.6 Imaging Last Impressions Renal Ultrasound 01/03/17 0000 Signed Impressions: Service Date/Time: Tuesday, January 03, 2017 22:04 - CONCLUSION: 1. Kidneys mildly echogenic characteristic of mild medical renal disease. No hydronephrosis. Moderate ascites. Esteban Lee MD Chest X-Ray 01/01/17 0000 Signed Impressions: Service Date/Time: Sunday, January 01, 2017 19:46 - CONCLUSION: Possible minimal left effusion Jayson Lynch MD Physical Exam HEENT: Normocephalic; atraumatic; no jaundice. NECK: Neck is supple CHEST: Coarse breath sounds CARDIAC: Regular rate and rhythm with no murmur gallop or rubs. ABDOMEN: Soft, distended, mildly tender; no hepatosplenomegaly; bowel sounds are present in all four quadrants. EXTREMITIES: BUE ecchymotic, dry abrasions. FINANCIAL AID ADVISOR: No focal deficits; Lethargic, oriented to self, person, and place, but inappropriate at times. Assessment and Plan Plan ASSESSMENT: - GIB, Hemoccult (+) stool with complaints of intermittent melena but non recently. Hx of liver cirrhosis in EMR- pt not aware of this. Denies any hx of PUD, NSAID use. Never had EGD. s/p EGD -----> erythematous gastritis gastric antrum, duodenal inflammation, duodenal bulb. Biopsies pending. Plan was for colonoscopy today, but he only took 1/2 prep and did not have a bowel movement. He is refusing to take the Golytely. SSE x 1. Will give Magnesium Citrate today and plan for colonoscopy in am. PPI - Erythematous gastritis, duodenitis. Pathology pending. PPI. - Anemia, acute blood loss. S/P EGD as above. Plan was for colonoscopy today, but he did not take the bowel prep. 11.6/33.0. - Ascites. S/P Paracentesis (01/01/17). Cytology. - Lethargy. Pt lethargic, he is oriented, but inappropriate at times. Will check Ammonia. T. Bili 0.7, AST 14, ALT 6, Alk Phosph 129. - Liver cirrhosis with ongoing ETOH abuse. LFT stable. - Right foot/toes erythematous. per primary - DM, CHF, CVA, per primary PLAN: - Colonoscopy in am - Obtain consents - Magnesium Citrate Prep - (Refusing Golytely) - Monitor HH - Transfuse as necessary - PPI - Monitor labs - repeat EGD in 8 weeks - Supportive care - Further recommendations to follow based on results of above - Pt seen and examined by Dr. Almodovar and myself and this note is written on his behalf Jesenia Kaplan Jan 04, 2017 10:58
--- NOTE | 2017-01-04 12:43 | HHI.PR ---
Subjective Remarks The patient reports that he is feeling okay. He is agreeable to continue with the colonoscopy prep. He reports mild abdominal discomfort. No nausea or vomiting. Discussed with RN. Objective Vitals Vital Signs Date Time Temp Pulse Resp B/P Pulse Ox O2 Delivery O2 Flow Rate FiO2 01/04/17 12:00 100 01/04/17 11:00 95 Blow By 1.50 01/04/17 11:00 101 01/04/17 11:00 98.5 103 18 118/86 95 01/04/17 10:00 102 01/04/17 09:00 102 01/04/17 08:00 101 01/04/17 07:35 94 Nasal Cannula 3.00 01/04/17 07:00 92 Simple Mask 1.50 01/04/17 07:00 95 01/04/17 07:00 97.8 104 18 104/77 92 01/04/17 06:19 96 01/04/17 05:01 95 01/04/17 04:00 90 01/04/17 03:00 100 01/04/17 03:00 97 Nasal Cannula 1.50 01/04/17 03:00 98.0 89 20 113/81 97 01/04/17 02:00 100 01/04/17 01:00 102 01/04/17 00:06 117 01/03/17 23:20 97.8 102 22 119/86 97 01/03/17 23:20 97 Nasal Cannula 1.50 01/03/17 23:00 95 01/03/17 22:14 91 01/03/17 21:46 95 Nasal Cannula 2.00 01/03/17 21:00 92 01/03/17 20:00 96 01/03/17 19:30 95 Nasal Cannula 1.00 01/03/17 19:20 98 Nasal Cannula 2.00 01/03/17 19:20 98.0 93 18 113/83 98 01/03/17 19:00 96 01/03/17 18:00 88 01/03/17 17:00 90 01/03/17 16:00 90 01/03/17 15:15 81 01/03/17 15:15 96 Nasal Cannula 01/03/17 15:15 98.0 81 18 106/74 96 01/03/17 15:00 82 01/03/17 14:00 88 01/03/17 13:00 90 I/O 01/03/17 01/03/17 01/03/17 01/04/17 01/04/17 01/04/17 07:00 15:00 23:00 07:00 15:00 23:00 Intake Total 480 ml 1978 ml 3222 ml Output Total 0 ml 250 ml 100 ml Balance 480 ml 1728 ml 3122 ml Intake Oral 480 ml 620 ml 2200 ml IV Total 1358 ml 1022 ml Output Urine Total 0 ml 250 ml 100 ml # Bowel Movements 0 0 0 Result Diagram: 01/04/17 0544 01/04/17 0544 Imaging Last Impressions Renal Ultrasound 01/03/17 0000 Signed Impressions: Service Date/Time: Tuesday, January 03, 2017 22:04 - CONCLUSION: 1. Kidneys mildly echogenic characteristic of mild medical renal disease. No hydronephrosis. Moderate ascites. Esteban Lee MD Chest X-Ray 01/01/17 0000 Signed Impressions: Service Date/Time: Sunday, January 01, 2017 19:46 - CONCLUSION: Possible minimal left effusion Jayson Lynch MD Objective Remarks GENERAL: Somewhat groggy but alert and oriented. CARDIOVASCULAR: Normal rate and regular rhythm without murmurs, gallops, or rubs. RESPIRATORY: Good respiratory efforts. Breath sounds diminished at the bases bilaterally. GASTROINTESTINAL: Abdomen is distended. Nontender. MUSCULOSKELETAL: Extremities without cyanosis, or edema. NEURO: Alert & Oriented x4 to person, place, time, situation. Moves all ext x4. Somewhat groggy PSYCH: Appropriate mood and affect. Procedures 01/01 Upper endoscopy A/P Problem List: (1) Heme positive stool ICD Code: R19.5 Status: Acute (2) Cirrhosis of liver with ascites ICD Code: K74.60 Status: Chronic (3) Weakness ICD Code: R53.1 Status: Acute (4) Alcohol abuse ICD Code: F10.10 Status: Chronic (5) Tobacco abuse ICD Code: Z72.0 Status: Chronic (6) Type 2 diabetes mellitus ICD Code: E11.9 Status: Resolved (7) Frequent falls ICD Code: R29.6 Status: Acute Assessment and Plan 61-year-old male with: Anemia, suspect GI bleed. - Appreciate gastroenterology service recommendations -EGD 01/01/17 showing gastritis in the gastric antrum, biopsy performed; duodenal inflammation was found at that duodenal bulb - Prep with GoLYTELY and magnesium citrate. Discussed with RN in GI. Patient to be encouraged to comply with GoLYTELY. - Protonix 40 mg IV every 24 hours - VS remains hemodynamically stable Thrombocytopenia. Likely secondary to liver cirrhosis. Stable. - Continue to monitor. Decreased urine output. Dehydrated. - Will give 1 L NS and continue IVF at 125 cc/hr. Monitor Bladder scan to ensure Ordaz is working. Ascites likely secondary to liver cirrhosis -Patient status post paracentesis on 01/01/17 - Will repeat US today to see if he would benefit from another paracentesis. Alcohol abuse - Alcohol withdrawal precautions with [facility] protocol - Thiamine, multivitamin Tobacco abuse cessation counseling - Nicotine patch, to be removed at night to reduce likelihood of nightmares Low back and right shoulder pain - Decrease Oxycodone to 5 mg as needed for pain>5 Frequent falls/ Weakness. - Consult physical therapy for assistance with gait assessment and strengthening to prevent further debility -PT recommends patient did not get out of bed independently; plan to discharge to SNF for rehabilitation Type 2 diabetes mellitus, overall controlled -SSI with Accu-Cheks. DVT prophylaxis - SCDs, hold pharmacologic anticoagulation due to GI Bleed Discharge Planning DW MARISA and Gi, Dr. Yoo Problem Qualifiers (1) Type 2 diabetes mellitus: Chika Forde MD Jan 04, 2017 12:43
[2017-01-04] MEDS ORDERED: SODIUM CHLOR 0.9% 1000 ML INJ 1,000 ML IV ONE (13:00)
[2017-01-04] MEDS ORDERED: MAGNESIUM CITRATE SOLN 300 ML BTL PO ONE ×2 (15:00→19:00)
--- NOTE | 2017-01-04 16:00 | RADRPT ---
EXAM DATE/TIME: 01/04/2017 13:55 [facility] COMPARISON: CT ABDOMEN & PELVIS W CONTRAST, December 29, 2016, 20:25. INDICATIONS : Ascites. MEDICAL HISTORY : Hypertension. Cerebrovascular accident. Congestive heart failure. Anticoagulant therapy, Coumadin . Diabetes. Prostate cancer. Radiation therapy. Cirrhosis. SURGICAL HISTORY : Prostatectomy. Back surgery x 4. Paracentesis. ENCOUNTER: Subsequent ACUITY: 1 day PAIN SCORE: 2/10 LOCATION: Abdomen. AREA EVALUATED: Abdominal quadrant. FINDINGS: Imaging of the abdomen and pelvis was performed to evaluate for ascites for possible paracentesis. CONCLUSION: There is a large amount of ascites noted throughout the abdomen. Garry Carter MD on January 04, 2017 at 15:58 Board Certified Radiologist. This report was verified electronically.
--- NOTE | 2017-01-04 17:58 | RADRPT ---
EXAM DATE/TIME: 01/01/2017 15:24 [facility] COMPARISON: No previous studies available for comparison. INDICATIONS : Ascites. Vancomycin within 2 hrs of procedure, Ancef (or alternative) within 1 hr of procedure start. MEDICAL HISTORY : Stroke. Cirrhosis. CHF. Hypertension. Abdominal pain. Diabetes. Blood transfusion. SURGICAL HISTORY : Prostatectomy. Back surgery x 4. Paracentesis. ENCOUNTER: Initial ACUITY: 1 day PAIN SCORE: 0/10 LOCATION: Left lower quadrant FLUID: Total volume of 4,800 cc of cloudy, red fluid was removed. Fluid was sent to lab for ordered studies. Post procedure scanning reveals no hematoma or other complication. TECHNIQUE: 1. Ultrasound guidance for abdominal paracentesis. 2. Paracentesis. The risks, benefits, and alternatives to ultrasound guided paracentesis were explained to the patient in detail including the risk of bleeding and infection. Written and verbal informed consent was obt ained. With the patient on the ultrasound table, ultrasound imaging was used to select the most appropriate approach for paracentesis. Overlying skin was prepped and draped in the usual sterile fashion and wi th a local anesthetic, a dermatotomy was made with an 11 blade scalpel. A 6 [facility] [id number] ca theter was introduced into the peritoneal cavity and fluid was collected. The patient tolerated the procedure well and left the ultrasound suite in stable condition. CONCLUSION: Uncomplicated ultrasound guided paracentesis. Bruce Medellin MD FACR on January 04, 2017 at 17:56 Board Certified Radiologist. This report was verified electronically.
[2017-01-04] MEDS: PANTOPRAZOLE SOD 40 MG DELAYED RELEASE TAB PO SCH (20:00)
[2017-01-04] MEDS: LORazepam 1 MG TAB PO PRN (20:00)
[2017-01-05] VITALS (28 sets, daily range): BP systolic 80–127; BP diastolic 50–95; PULSE 87–126; RESP 20–36; TEMP 98–99.8; O2SAT 86–100
[2017-01-05] MEDS ORDERED: CHLORHEXIDINE GLUCONATE 2 % 1 PACK (2 CLOTHS) TOPICAL PRN (02:45)
[2017-01-05] MEDS ORDERED: SODIUM CHLORID 0.9% 500 ML IV PRN (02:45)
[2017-01-05] MEDS ORDERED: LACTATED RINGER'S 1000 ML IV PRN (02:45)
[2017-01-05] MEDS ORDERED: POVIDONE IODINE 5% (ANTISEPSIS KIT) 4 APPLICATIONS EACH NARE PRN (02:45)
[2017-01-05] MEDS ORDERED: METOPROLOL TARTRATE 25 MG TAB PO PRN (02:45)
[2017-01-05] MEDS ORDERED: INSULIN HUMAN REGULAR 1,000 UNITS/10 ML VIAL SQ PRN (02:45)
[2017-01-05] MEDS ORDERED: FUROSEMIDE 20 MG/2 ML VIAL IV PUSH ONE (04:00)
[2017-01-05 04:46] LABS: AUTOMATED NEUTROPHIL # 4.3 TH/MM3 (1.8-7.7); BASOPHIL # 0.1 TH/MM3 (0-0.2); EOSINOPHIL % 0.2 % (0.0-4.0); LYMPH % 13.6 % (9.0-44.0); LYMPHOCYTE # 0.7 TH/MM3 (1.0-4.8); MEAN CELL VOLUME 111.1 FL (80.0-100.0); MEAN CORPUSCULAR HEMOGLOBIN 38.5 PG (27.0-34.0); MEAN CORPUSCULAR HGB CONC 34.7 % (32.0-36.0); MONO % 5.8 % (0.0-8.0); NEUT % 79.4 % (16.0-70.0); PLATELET COUNT 155 TH/MM3 (150-450); RED BLOOD COUNT 3.33 MIL/MM3 (4.50-5.90); RED CELL DISTRIBUTION WIDTH 15.5 % (11.6-17.2); WHITE BLOOD COUNT 5.5 TH/MM3 (4.0-11.0)
--- NOTE | 2017-01-05 05:06 | RADRPT ---
EXAM DATE/TIME: 01/05/2017 04:21 [facility] COMPARISON: CHEST SINGLE AP, January 01, 2017, 19:46. INDICATIONS : Short of breath. MEDICAL HISTORY : Stroke. Cirrhosis. CHF. Hypertension. Diabetes. SURGICAL HISTORY : Prostatectomy. ENCOUNTER: Subsequent ACUITY: 1 week PAIN SCORE: Non-responsive. LOCATION: Bilateral chest FINDINGS: A single view of the chest demonstrates slight worsening bibasilar consolidation.. The cardiomediast inal contours are unremarkable. Osseous structures are intact. CONCLUSION: Slight worsening bibasilar consolidation. Merritt Jasmine MD on January 05, 2017 at 5:03 Board Certified Radiologist. This report was verified electronically.
[2017-01-05] MEDS: RESP: ALBUTEROL 2.5 MG/IPRATROPIUM 0.5 MG NEB (PRN) NEB ×2 (05:10→20:15)
[2017-01-05 05:22] LABS: HEMO FLAGS AUTO DIFF
[2017-01-05 05:23] LABS: BICARBONATE 27.4 MEQ/L (21.0-32.0); POTASSIUM 3.5 MEQ/L (3.5-5.1)
[2017-01-05 05:26] LABS: INDIRECT BILIRUBIN 0.6 MG/DL (0.0-0.8); TOTAL BILIRUBIN ADULT 1.3 MG/DL (0.2-1.0)
[2017-01-05] MEDS ORDERED: LEVOFLOXACIN 750 MG PREMIX INJ 150 ML IV ONE (05:30)
[2017-01-05 05:56] LABS: BLOOD GAS CARBOXYHEMOGLOBIN 1.8 % (0-4); BLOOD GAS HCO3 24 mmol/L (22-26); BLOOD GAS METHEMOGLOBIN 0.9 % (0-2); BLOOD GAS O2 HGB SATURATION 86 % (90-100); BLOOD GAS PCO2 33 mmHg (38-42); BLOOD GAS PO2 55 mmHg (61-120); BLOOD GAS TOTAL HGB 13.2 G/DL (12.0-16.0); TEMP CORR TO 98.6
[2017-01-05 05:59] LABS: CRITICAL VALUE YES; DRAW SITE RT RADIAL; LITER FLOW 4 L/M; NUMBER OF ARTERIAL PUNCTURES 1; OXYGEN DEVICE NASAL CANNULA; STAT YES; ULNAR PULSE PRESENT
[2017-01-05 07:30] LABS: SCAN/DIFF AUTO DIFF CONFIRMED
[2017-01-05] MEDS: RESP: ALBUTEROL 2.5 MG/IPRATROPIUM 0.5 MG NEB (SCH) NEB ×3 (07:36→16:20)
[2017-01-05] MEDS: MULTIVITAMIN TAB PO SCH (08:27)
[2017-01-05] MEDS: THIAMINE HCL 100 MG TAB PO SCH (08:27)
[2017-01-05] MEDS: NICOTINE 14 MG/24 HR PATCH T-DERMAL SCH (08:27)
[2017-01-05] MEDS: REMOVE OLD PATCH T-DERMAL SCH (08:27)
[2017-01-05] MEDS: SODIUM CHLORIDE 0.9% FLUSH 10 ML FLUSH IV FLUSH SCH ×2 (08:28→21:00)
--- NOTE | 2017-01-05 10:10 | HHI.PR ---
Subjective Remarks Worsening respiratory status overnight and this morning. On my evaluation, the patient is tachypneic and using accessory muscles. Abdominal distention is much worse. We tried Bipap but he is not tolerating that. He wants aggressive measures if needed including intubation. Objective Vitals Vital Signs Date Time Temp Pulse Resp B/P Pulse Ox O2 Delivery O2 Flow Rate FiO2 01/05/17 09:32 90 Bi-Pap 100 01/05/17 09:00 126 01/05/17 08:00 116 01/05/17 07:40 91 Non-Rebreather 12.00 01/05/17 07:30 91 Non-Rebreather 12.00 01/05/17 07:30 98.6 115 36 104/74 87 01/05/17 07:00 88 Simple Mask 6.00 01/05/17 07:00 112 01/05/17 06:30 90 Simple Mask 6.00 01/05/17 06:14 119 01/05/17 05:10 92 Nasal Cannula 4.00 01/05/17 05:00 106 01/05/17 04:22 92 Nasal Cannula 3.00 01/05/17 04:00 106 01/05/17 03:41 90 Nasal Cannula 5.00 01/05/17 03:40 86 Nasal Cannula 2.00 01/05/17 03:30 98.0 109 30 127/95 86 01/05/17 03:00 95 01/05/17 02:00 98 01/05/17 01:16 98 01/05/17 00:00 106 01/04/17 23:00 98.3 101 20 122/89 98 01/04/17 23:00 98 01/04/17 23:00 98 Nasal Cannula 1.50 01/04/17 22:00 90 01/04/17 21:00 98 01/04/17 20:00 90 01/04/17 19:10 101 01/04/17 19:10 97.7 100 20 141/88 93 01/04/17 19:10 93 Nasal Cannula 1.50 01/04/17 18:00 102 01/04/17 17:00 104 01/04/17 16:00 100 01/04/17 15:03 93 Nasal Cannula 3.00 01/04/17 15:00 99 01/04/17 15:00 98.3 100 18 120/92 98 01/04/17 15:00 97 Nasal Cannula 1.50 01/04/17 14:00 101 01/04/17 13:00 94 01/04/17 12:00 100 01/04/17 11:00 95 Blow By 1.50 01/04/17 11:00 101 01/04/17 11:00 98.5 103 18 118/86 95 01/04/17 10:00 102 I/O 01/04/17 01/04/17 01/04/17 01/05/17 01/05/17 01/05/17 07:00 15:00 23:00 07:00 15:00 23:00 Intake Total 3222 ml 1500 ml 940 ml Output Total 100 ml 400 ml 500 ml Balance 3122 ml 1100 ml 440 ml Intake Oral 2200 ml 240 ml IV Total 1022 ml 1500 ml 700 ml Output Urine Total 100 ml 400 ml 500 ml # Bowel Movements 0 2 1 Result Diagram: 01/05/17 0436 01/05/17435 Objective Remarks GENERAL: In respiratory distress. CARDIOVASCULAR: Normal rate and regular rhythm without murmurs, gallops, or rubs. RESPIRATORY: Tachypneic and shallow breathing. Poor air movement. GASTROINTESTINAL: Abdomen is markedly distended. Nontender. MUSCULOSKELETAL: Extremities without cyanosis, or edema. NEURO: Alert & Oriented x4 to person, place, time, situation. Moves all ext x4. PSYCH: Appropriate mood and affect. Procedures 01/01 Upper endoscopy A/P Problem List: (1) Heme positive stool ICD Code: R19.5 Status: Acute (2) Cirrhosis of liver with ascites ICD Code: K74.60 Status: Chronic (3) Weakness ICD Code: R53.1 Status: Acute (4) Alcohol abuse ICD Code: F10.10 Status: Chronic (5) Tobacco abuse ICD Code: Z72.0 Status: Chronic (6) Type 2 diabetes mellitus ICD Code: E11.9 Status: Resolved (7) Frequent falls ICD Code: R29.6 Status: Acute Assessment and Plan 61-year-old male with: Acute hypoxemic respiratory failure: Tachypneic, shallow breathing. Suspect this is secondary to worsening ascites. Chest x-ray images reviewed showing bibasilar consolidation. Patient was dry yesterday with very low urinary output. He was given IV fluid. - Patient is not tolerating BiPAP. Will transfer to ICU. I suspect he will require intubation and stabilization so he can get a paracentesis. - Consult blade boner - He receives a dose of IV Levaquin this morning. Deferred to blade boner to continue antibiotics. Anemia, suspect GI bleed. - Appreciate gastroenterology service recommendations -EGD 01/01/17 showing gastritis in the gastric antrum, biopsy performed; duodenal inflammation was found at that duodenal bulb - GI planning on colonoscopy but the patient is currently not stable. Thrombocytopenia. Likely secondary to liver cirrhosis. Improving - Continue to monitor. Decreased urine output. Relative dehydration with marked ascites - Hold IVF for now. Monitor urine output Ascites likely secondary to liver cirrhosis - Patient status post paracentesis on 01/01/17 -Repeat ultrasound yesterday afternoon showed large amount of ascites. IR consulted for repeat paracenteses with the patient is currently unstable. Transfer to ICU with blade boner consult as above Alcohol abuse - Alcohol withdrawal precautions with [facility] protocol - Thiamine, multivitamin Tobacco abuse cessation counseling - Nicotine patch, to be removed at night to reduce likelihood of nightmares Low back and right shoulder pain - Oxycodone 5 mg as needed for pain>5 Frequent falls/ Weakness. - Consult physical therapy for assistance with gait assessment and strengthening to prevent further debility -PT recommends rehab; plan to discharge to SNF for rehabilitation Type 2 diabetes mellitus, overall controlled -SSI with Accu-Cheks. DVT prophylaxis - SCDs, hold pharmacologic anticoagulation due to GI Bleed Discharge Planning SAVANA RN. Transfer to ICU. Consult blade boner. Problem Qualifiers (1) Type 2 diabetes mellitus: Chkia Forde MD Jan 05, 2017 10:10 Chika Forde MD Jan 05, 2017 10:10
[2017-01-05] MEDS ORDERED: ALBUMIN HUMAN 25% 25 GM/100 ML BAGP IV ONE ×3 (10:24→10:30)
--- NOTE | 2017-01-05 10:44 | HHI.GIFU ---
Subjective Remarks Transferred from [facility] for respiratory distress. On BiPAP. Lethargic. No n/v. Abdominal discomfort- large amount of ascites. Paracentesis ordered. Objective Vitals I&O Vital Signs Date Time Temp Pulse Resp B/P Pulse Ox O2 Delivery O2 Flow Rate FiO2 01/05/17 10:20 93 90 01/05/17 09:32 90 Bi-Pap 100 01/05/17 09:00 126 01/05/17 08:00 116 01/05/17 07:40 91 Non-Rebreather 12.00 01/05/17 07:30 91 Non-Rebreather 12.00 01/05/17 07:30 98.6 115 36 104/74 87 01/05/17 07:00 88 Simple Mask 6.00 01/05/17 07:00 112 01/05/17 06:30 90 Simple Mask 6.00 01/05/17 06:14 119 01/05/17 05:10 92 Nasal Cannula 4.00 01/05/17 05:00 106 01/05/17 04:22 92 Nasal Cannula 3.00 01/05/17 04:00 106 01/05/17 03:41 90 Nasal Cannula 5.00 01/05/17 03:40 86 Nasal Cannula 2.00 01/05/17 03:30 98.0 109 30 127/95 86 01/05/17 03:00 95 01/05/17 02:00 98 01/05/17 01:16 98 01/05/17 00:00 106 01/04/17 23:00 98.3 101 20 122/89 98 01/04/17 23:00 98 01/04/17 23:00 98 Nasal Cannula 1.50 01/04/17 22:00 90 01/04/17 21:00 98 01/04/17 20:00 90 01/04/17 19:10 101 01/04/17 19:10 97.7 100 20 141/88 93 01/04/17 19:10 93 Nasal Cannula 1.50 01/04/17 18:00 102 01/04/17 17:00 104 01/04/17 16:00 100 01/04/17 15:03 93 Nasal Cannula 3.00 01/04/17 15:00 99 01/04/17 15:00 98.3 100 18 120/92 98 01/04/17 15:00 97 Nasal Cannula 1.50 01/04/17 14:00 101 01/04/17 13:00 94 01/04/17 12:00 100 01/04/17 11:00 95 Blow By 1.50 01/04/17 11:00 101 01/04/17 11:00 98.5 103 18 118/86 95 I/O 01/04/17 01/04/17 01/04/17 01/05/17 01/05/17 01/05/17 07:00 15:00 23:00 07:00 15:00 23:00 Intake Total 3222 ml 1500 ml 940 ml Output Total 100 ml 400 ml 500 ml Balance 3122 ml 1100 ml 440 ml Intake Oral 2200 ml 240 ml IV Total 1022 ml 1500 ml 700 ml Output Urine Total 100 ml 400 ml 500 ml # Bowel Movements 0 2 1 Laboratory Laboratory Tests Test 01/04/17 01/05/17 01/05/17 12:01 04:36 05:45 Ammonia 23 White Blood Count 5.5 Red Blood Count 3.33 Hemoglobin 12.8 Hematocrit 37.0 Mean Corpuscular Volume 111.1 Mean Corpuscular Hemoglobin 38.5 Mean Corpuscular Hemoglobin 34.7 Concent Red Cell Distribution Width 15.5 Platelet Count 155 Mean Platelet Volume 7.3 Neutrophils (%) (Auto) 79.4 Lymphocytes (%) (Auto) 13.6 Monocytes (%) (Auto) 5.8 Eosinophils (%) (Auto) 0.2 Basophils (%) (Auto) 1.0 Neutrophils # (Auto) 4.3 Lymphocytes # (Auto) 0.7 Monocytes # (Auto) 0.3 Eosinophils # (Auto) 0.0 Basophils # (Auto) 0.1 CBC Comment AUTO DIFF Differential Comment AUTO DIFF CONFIRMED Sodium Level 139 Potassium Level 3.5 Chloride Level 102 Carbon Dioxide Level 27.4 Anion Gap 10 Blood Urea Nitrogen 14 Creatinine 0.51 Estimat Glomerular Filtration 165 Rate Random Glucose 114 Calcium Level 8.0 Total Bilirubin 1.3 Direct Bilirubin 0.7 Indirect Bilirubin 0.6 Aspartate Amino Transf 15 (AST/SGOT) Alanine Aminotransferase 7 (ALT/SGPT) Alkaline Phosphatase 149 B-Type Natriuretic Peptide 78 Total Protein 6.7 Albumin 1.7 Blood Gas Puncture Site RT RADIAL Blood Gas Patient Temperature 98.6 Blood Gas HCO3 24 Blood Gas Base Excess 1.0 Blood Gas Oxygen Saturation 86 Arterial Blood pH 7.48 Arterial Blood Partial 33 Pressure CO2 Arterial Blood Partial 55 Pressure O2 Arterial Blood Oxygen Content 16.0 Arterial Blood 1.8 Carboxyhemoglobin Arterial Blood Methemoglobin 0.9 Blood Gas Hemoglobin 13.2 Oxygen Delivery Device NASAL CANNULA Blood Gas Liter Flow 4 Imaging Last Impressions Chest X-Ray 01/05/17 Signed Impressions: Service Date/Time: Thursday, January 05, 2017 04:21 - CONCLUSION: Slight worsening bibasilar consolidation. Merritt Jasmine MD Abdomen Ultrasound 01/04/17 0000 Signed Impressions: Service Date/Time: Wednesday, January 04, 2017 13:55 - CONCLUSION: There is a large amount of ascites noted throughout the abdomen. Garry Carter MD Renal Ultrasound 01/03/17 0000 Signed Impressions: Service Date/Time: Tuesday, January 03, 2017 22:04 - CONCLUSION: 1. Kidneys mildly echogenic characteristic of mild medical renal disease. No hydronephrosis. Moderate ascites. Esteban Lee MD Cyst Biopsy Asp-Paracentesis US 01/01/17 Signed Impressions: Service Date/Time: Sunday, January 01, 2017 15:24 - CONCLUSION: Uncomplicated ultrasound guided paracentesis. Bruce Medellin MD FACR Physical Exam HEENT: Normocephalic; atraumatic CHEST: Resp. shallow, tachypneic 40, Diminished. On BiPap. CARDIAC: ST 120 ABDOMEN: Soft, distended, mildly tender; no hepatosplenomegaly; bowel sounds are present in all four quadrants. Large amount of ascites. EXTREMITIES: BUE ecchymotic, dry abrasions. CHIEF UNDERWRITER: Lethargic, oriented to self, person, and place Assessment and Plan Plan ASSESSMENT: - GIB, Hemoccult (+) stool with complaints of intermittent melena but non recently. Hx of liver cirrhosis in EMR- pt not aware of this. Denies any hx of PUD, NSAID use. Never had EGD. s/p EGD -----> erythematous gastritis gastric antrum, duodenal inflammation, duodenal bulb. Plan was for colonoscopy today, but he only took 1/2 prep and did not have a bowel movement. He refused the Golytely, but was agreeable to Magnesium citrate and SSE. This was planned for today, but had respiratory decompensation overnight and was transferred to the unit this am. He is now on Bipap. PPI. HH 12.8/37.0. - Erythematous gastritis, duodenitis. Pathology duodenal mucosa without significant histologic abnormality, features consistent with a reactive gastropathy. PPI. - Anemia, acute blood loss. S/P EGD as above. Plan was for colonoscopy today, but he did not take the bowel prep. HH 12.8/37.0. - Ascites. S/P Paracentesis (01/01/17). Cytology pending. Getting repeat paracentesis at bedside today. Will send fluid studies. Cytology done on previous paracentesis. To get albumin with this. Add Lasix, Spironolactone. Adjust as b/p allows - Lethargy. Pt lethargic, he is oriented, but inappropriate at times. Ammonia okay, 23. - Liver cirrhosis with ongoing ETOH abuse. LFT stable- T. Bili 1.3, AST 15, ALT 67 Alk Phosph 149. - Respiratory Insufficiency, failure. Tx to [facility] for respiratory distress. On BiPAP. Getting paracentesis. CXR with slight worsening bibasilar consolidation. - Right foot/toes erythematous. per primary - DM, CHF, CVA, per primary PLAN: - Heart healthy, low sodium diet, 1500cc fluid restriction - Await cytology from paracentesis (01/01) - Bedside paracentesis with fluid analysis today - Cont. PPI - Monitor HH - Transfuse as necessary - Add low dose Lasix and Spironolactone- closely monitor B/P - CBC, PT, BMP in am - Consider colonoscopy when stable - Repeat EGD in 8 weeks - Supportive care - Further recommendations to follow based on results of above - Pt seen and examined by Dr. Almodovar and myself and this note is written on his behalf Jesenia Kaplan Jan 05, 2017 10:44
[2017-01-05 12:12] LABS: LIPASE-PERITONEAL FLUID 44 U/L
--- NOTE | 2017-01-05 12:12 | PD.CONS ---
[facility] Service Critical Care Medicine Consult Requested By Dr. Forde Reason for Consult hypoxia Primary Care Physician Kavon Gonzalez MD History of Present Illness This is a 61yM with ESLD, DM, CVA, etoh cirrhosis, presented initially on 12/31 with GI bleed and weakness. He does state he has had paracentesis in the past for large volume ascites. He was on the floor with worsening respiratory status and enlarging ascites. rapid response was called and the patient was placed on BiPAP with increasing fio2 and worsening respiratory distress. He was then taken to the ICU for further evaluation and management. I evaluated the patient. he was dyspneic in severe respiratory distress. He was saying "if you don't tap me, I'm going to ." I talked with Dr. Forde who stated that IR was planning on paracentesis later in the day. The patient is unfortunately too dyspneic to participate in the remainder of the history. I talked with Jesenia Kaplan of GI who stated that the plan was for scope to eval GI bleed, but this would be postponed given respiratory distress. Critical care medicine is consulted to evaluate and manage his acute hypoxic respiratory failure. Review of Systems ROS Limitations: Clinical Condition ROS severe dyspnea, hypoxia on BiPAP prevents complete ROS. Past Family Social History Allergies: Coded Allergies: No Known Allergies (Verified , 01/30/10) Past Medical History Unobtainable secondary to the clinical condition of the patient. Per chart review: Liver cirrhosis Type 2 diabetes mellitus Congestive heart failure CVA Prostate CA - s/p radiation and prostatectomy . Past Surgical History unobtainable secondary to the clinical condition of the patient. per chart review: Back surgery x 4 Prostatectomy Uvulectomy Nasal surgery x 2 . Reported Medications unobtainable secondary to the clinical condition of the patient. per chart review: Clonazepam 0.5 Mg Tab 0.5 Mg PO TID Active Ordered Medications See MAR Family History unobtainable secondary to the clinical condition of the patient. unlikely to be contributory to his acute illness. Social History unobtainable secondary to the clinical condition of the patient. per chart review: 1/2 ppd smoker, drinks 4-5 drinks/day. Physical Exam Vital Signs Vital Signs Date Time Temp Pulse Resp B/P Pulse Ox O2 Delivery O2 Flow Rate FiO2 01/05/17 10:20 93 90 01/05/17 09:32 90 Bi-Pap 100 01/05/17 09:05 90 90 01/05/17 09:00 126 01/05/17 08:00 116 01/05/17 07:40 91 Non-Rebreather 12.00 01/05/17 07:30 91 Non-Rebreather 12.00 01/05/17 07:30 98.6 115 36 104/74 87 01/05/17 07:00 88 Simple Mask 6.00 01/05/17 07:00 112 01/05/17 06:30 90 Simple Mask 6.00 01/05/17 06:14 119 01/05/17 05:10 92 Nasal Cannula 4.00 01/05/17 05:00 106 01/05/17 04:22 92 Nasal Cannula 3.00 01/05/17 04:00 106 01/05/17 03:41 90 Nasal Cannula 5.00 01/05/17 03:40 86 Nasal Cannula 2.00 01/05/17 03:30 98.0 109 30 127/95 86 01/05/17 03:00 95 01/05/17 02:00 98 01/05/17 01:16 98 01/05/17 00:00 106 01/04/17 23:00 98.3 101 20 122/89 98 01/04/17 23:00 98 01/04/17 23:00 98 Nasal Cannula 1.50 01/04/17 22:00 90 01/04/17 21:00 98 01/04/17 20:00 90 01/04/17 19:10 101 01/04/17 19:10 97.7 100 20 141/88 93 01/04/17 19:10 93 Nasal Cannula 1.50 01/04/17 18:00 102 01/04/17 17:00 104 01/04/17 16:00 100 01/04/17 15:03 93 Nasal Cannula 3.00 01/04/17 15:00 99 01/04/17 15:00 98.3 100 18 120/92 98 01/04/17 15:00 97 Nasal Cannula 1.50 01/04/17 14:00 101 01/04/17 13:00 94 Physical Exam gen: middle-aged male, sitting in bed, severe respiratory distress. heent: perrl. mucous membranes moist. neck: bipap in place. trachea midline. chest: tachypneic. labored. equal chest rise cv: tachycardic rate, regular rhythm. sinus by telemetry abd: distended. tense. nontender. +fluid wave. no guarding. extr: 1+ pitting edema. neuro: RASS +1. follows commands. agitated. Laboratory Laboratory Tests Test 01/05/17 01/05/17 04:36 05:45 White Blood Count 5.5 Red Blood Count 3.33 Hemoglobin 12.8 Hematocrit 37.0 Mean Corpuscular Volume 111.1 Mean Corpuscular Hemoglobin 38.5 Mean Corpuscular Hemoglobin 34.7 Concent Red Cell Distribution Width 15.5 Platelet Count 155 Mean Platelet Volume 7.3 Neutrophils (%) (Auto) 79.4 Lymphocytes (%) (Auto) 13.6 Monocytes (%) (Auto) 5.8 Eosinophils (%) (Auto) 0.2 Basophils (%) (Auto) 1.0 Neutrophils # (Auto) 4.3 Lymphocytes # (Auto) 0.7 Monocytes # (Auto) 0.3 Eosinophils # (Auto) 0.0 Basophils # (Auto) 0.1 CBC Comment AUTO DIFF Differential Comment AUTO DIFF CONFIRMED Sodium Level 139 Potassium Level 3.5 Chloride Level 102 Carbon Dioxide Level 27.4 Anion Gap 10 Blood Urea Nitrogen 14 Creatinine 0.51 Estimat Glomerular Filtration 165 Rate Random Glucose 114 Calcium Level 8.0 Total Bilirubin 1.3 Direct Bilirubin 0.7 Indirect Bilirubin 0.6 Aspartate Amino Transf 15 (AST/SGOT) Alanine Aminotransferase 7 (ALT/SGPT) Alkaline Phosphatase 149 B-Type Natriuretic Peptide 78 Total Protein 6.7 Albumin 1.7 Blood Gas Puncture Site RT RADIAL Blood Gas Patient Temperature 98.6 Blood Gas HCO3 24 Blood Gas Base Excess 1.0 Blood Gas Oxygen Saturation 86 Arterial Blood pH 7.48 Arterial Blood Partial 33 Pressure CO2 Arterial Blood Partial 55 Pressure O2 Arterial Blood Oxygen Content 16.0 Arterial Blood 1.8 Carboxyhemoglobin Arterial Blood Methemoglobin 0.9 Blood Gas Hemoglobin 13.2 Oxygen Delivery Device NASAL CANNULA Blood Gas Liter Flow 4 Date/Time Procedure Status Source Growth 01/05/17 10:45 Gram Stain Received Fluid Peritoneal Fluid Pending 01/05/17 10:45 Body Fluid Culture Received Fluid Peritoneal Fluid Pending Result Diagram: 01/05/17 0436 01/05/17 0436 Imaging Last Impressions Chest X-Ray 01/05/17 0000 Signed Impressions: Service Date/Time: Thursday, January 05, 2017 04:21 - CONCLUSION: Slight worsening bibasilar consolidation. Merritt Jasmine MD Abdomen Ultrasound 01/04/17 0000 Signed Impressions: Service Date/Time: Wednesday, January 04, 2017 13:55 - CONCLUSION: There is a large amount of ascites noted throughout the abdomen. Garry Carter MD Renal Ultrasound 01/03/17 0000 Signed Impressions: Service Date/Time: Tuesday, January 03, 2017 22:04 - CONCLUSION: 1. Kidneys mildly echogenic characteristic of mild medical renal disease. No hydronephrosis. Moderate ascites. Esteban Lee MD Cyst Biopsy Asp-Paracentesis US 01/01/17 Signed Impressions: Service Date/Time: Sunday, January 01, 2017 15:24 - CONCLUSION: Uncomplicated ultrasound guided paracentesis. Bruce Medellin MD FACR Assessment and Plan Assessment and Plan Assessment: 61yM with ESLD and ascites who presents with severe acute hypoxic respiratory failure and respiratory distress. This clinically appears to be secondary to his worsening ascites causing a restrictive effect on pulmonary mechanics. I emergently performed paracentesis (see separate procedure note for details). 4.2L were removed. The patient immediately had improvement in his respiratory distress. He was initially on BiPAP 100% fio2 with spo2 91%, and at the conclusion of the procedure he was on 40% fio2 with spo2 98%. no longer labored. Active Problems: Acute hypoxic respiratory failure Ascites End-stage liver disease GI bleed Plan: -- parecentesis as above -- wean bipap as tolerated. -- 25% albumin to replace large volume paracentesis. -- colonoscopy per GI. -- aggressive pulm toilet. OOB with PT. Dispo: from my standpoint, could remain on hospitalist service. His breathing has significantly improved post-paracentesis. will keep in ICU at least overnight to monitor. I have spent in excess of 40 minutes discontinuously in the care and management of this patient while he was critically ill and in respiratory distress. this time is exclusive of procedures and includes but is not limited to time spent evaluating the patient, review of the medical record, discussion with hospitalist, consultants, nursing staff, respiratory therapy, and the patient. Code Status Full Code Discussed Condition With Dr. Forde GI service bedside RN Josep Schmitt MD Jan 05, 2017 12:12
[2017-01-05 12:13] LABS: INTERNATIONAL NORMALIZED RATIO 1.4 RATIO; PROTHROMBIN TIME - PATIENT 15.5 SEC (9.8-11.6)
[2017-01-05] MEDS: SPIRONOLACTONE 25 MG TAB PO SCH (12:16)
[2017-01-05 12:54] LABS: PERITONEAL HISTIOCYTES 1 %; PERITONEAL LYMPHS 64 %; PERITONEAL MESOTHELIAL 1 %; PERITONEAL MONOS 16 %; PERITONEAL POLYS(SEGS) 18 %; PERITONEAL WBC 42 /MM3 (0-10)
[2017-01-05] MEDS: FUROSEMIDE 20 MG/2 ML VIAL IV PUSH SCH (17:55)
[2017-01-05] MEDS ORDERED: CHLORHEXIDINE GLUCONATE 2 % 1 PACK (2 CLOTHS)(extra cloths) TOPICAL PRN (19:45)
--- NOTE | 2017-01-05 21:31 | PD.PROCEDR ---
Procedure Note Procedure Diagnostic and therapeutic Paracentesis Procedure Note Diagnosis: End-stage liver disease Indications: This patient is a 61-year-old male with alcoholic cirrhosis and end -stage liver disease who was transferred to the ICU emergently with worsening and decompensating restaurant status secondary to worsening high volume ascites causing compression atelectasis and respiratory failure. He was intended to get a paracentesis today by IR. Consent: The patient is in acute respiratory distress. The patient is instructing me at bedside that if he does not get the fluid drainage he will . The patient gives verbal consent for paracentesis. I consented him verbally for the risks of bleeding, infection, injury to bowel, liver, or other intra-abdominal organs. Anesthesia: Lidocaine 1% locally Description of the Procedure: The patient was placed in the supine position. The area of largest fluid collection was marked pre-procedure using ultrasound guidance. The area was prepped and draped sterilely. 1% Lidcaine was infiltrated subcutaneously. A small incision was made using a #11 blade. A 12g needle and angiocath were advanced under negative pressure aspiration until fluid was obtained. The catheter was advanced over the needle easily and without resistance. At the conclusion of the procedure, the catheter was removed and a dressing was applied. There were no immediate complications noted. There was minimal EBL. The patient tolerated the procedure well. Findings: 4.2 L of serous-appearing fluid removed At the conclusion of the procedure, the patient was in much less respiratory distress. He was breathing more comfortably. His FiO2 is significantly decreased from 100% 40%. I personally performed the procedure. Josep Schmitt MD Jan 05, 2017 21:31
[2017-01-05] MEDS: PANTOPRAZOLE SOD 40 MG DELAYED RELEASE TAB PO SCH (22:03)
[2017-01-06] VITALS (14 sets, daily range): BP systolic 85–112; BP diastolic 55–74; PULSE 84–92; RESP 14–18; TEMP 96.8–98.8; O2SAT 18–100
[2017-01-06] MEDS: CHLORHEXIDINE GLUCONATE 2 % 1 PACK (2 CLOTHS)(taper/protocol) TOPICAL SCH (04:00)
--- NOTE | 2017-01-06 05:45 | RADRPT ---
EXAM DATE/TIME: 01/06/2017 03:46 [place] COMPARISON: CHEST SINGLE AP, January 05, 2017, 4:21. INDICATIONS : Shortness of breath. MEDICAL HISTORY : Hypertension. Hypercholesterolemia. Congestive heart failure. Diabetes. Prostate cancer. Radiatio n therapy. Cirrhosis SURGICAL HISTORY : Prostatectomy. Back surgery x 4. Paracentesis ENCOUNTER: Subsequent ACUITY: 1 week PAIN SCORE: Non-responsive. LOCATION: Bilateral chest FINDINGS: A single view of the chest demonstrates persistent bibasilar densities. Heart normal in size. The ca rdiomediastinal contours are unremarkable. Osseous structures are intact. CONCLUSION: Persistent bibasilar densities. Merritt Jasmine MD on January 06, 2017 at 5:42 Board Certified Radiologist. This report was verified electronically.
[2017-01-06 06:52] LABS: INTERNATIONAL NORMALIZED RATIO 1.3 RATIO; PROTHROMBIN TIME - PATIENT 14.9 SEC (9.8-11.6)
[2017-01-06 07:27] LABS: BICARBONATE 29.4 MEQ/L (21.0-32.0)
[2017-01-06 07:32] LABS: POTASSIUM 2.7 MEQ/L (3.5-5.1)
[2017-01-06 07:52] LABS: AUTOMATED NEUTROPHIL # 4.3 TH/MM3 (1.8-7.7); BASOPHIL % 0.3 % (0.0-2.0); EOSINOPHIL % 0.1 % (0.0-4.0); HEMATOCRIT 28.8 % (39.0-51.0); HEMO FLAGS DIFF FINAL; LYMPH % 9.4 % (9.0-44.0); LYMPHOCYTE # 0.5 TH/MM3 (1.0-4.8); MEAN CELL VOLUME 110.7 FL (80.0-100.0); MEAN CORPUSCULAR HEMOGLOBIN 37.9 PG (27.0-34.0); MEAN CORPUSCULAR HGB CONC 34.2 % (32.0-36.0); NEUT % 83.2 % (16.0-70.0); PLATELET COUNT 115 TH/MM3 (150-450); RED CELL DISTRIBUTION WIDTH 15.1 % (11.6-17.2); WHITE BLOOD COUNT 5.2 TH/MM3 (4.0-11.0)
[2017-01-06] MEDS ORDERED: ICU - POTASSIUM PHOSPHATE MONOBASIC 500 MG TAB PO PRN (08:00)
[2017-01-06] MEDS ORDERED: ICU - POTASSIUM PHOSPHATE 30 MMOL/NS 250 ML IV PRN ×2 (08:00)
[2017-01-06] MEDS ORDERED: ICU - MAGNESIUM OXIDE 400 MG TAB PO PRN (08:00)
[2017-01-06] MEDS ORDERED: ICU - SODIUM PHOSPHATE 30 MMOL/NS 250 ML IV PRN ×2 (08:00)
[2017-01-06] MEDS ORDERED: ICU - POTASSIUM CHLORIDE/AQUEOUS SOLN 20 MEQ/100 ML IVPB IV PRN (08:00)
[2017-01-06] MEDS ORDERED: ICU - D/C ICU ELECTROLYTE ORDERS PRN (08:00)
[2017-01-06] MEDS ORDERED: ICU - MAGNESIUM SULFATE 2 GM/NS 100 ML IV PRN ×2 (08:00)
[2017-01-06] MEDS ORDERED: ICU - POTASSIUM CHLORIDE/AQUEOUS SOLN 40 MEQ/100 ML IVPB IV PRN (08:00)
[2017-01-06] MEDS ORDERED: ICU - CALL ORDERING PHYSICIAN PRN (08:00)
[2017-01-06] MEDS ORDERED: ICU - MAGNESIUM SULFATE 4 GM/NS 100 ML IV PRN ×2 (08:00)
[2017-01-06] MEDS: SPIRONOLACTONE 25 MG TAB PO SCH (08:41)
[2017-01-06] MEDS: REMOVE OLD PATCH T-DERMAL SCH (08:41)
[2017-01-06] MEDS: THIAMINE HCL 100 MG TAB PO SCH (08:41)
[2017-01-06] MEDS: NICOTINE 14 MG/24 HR PATCH T-DERMAL SCH (08:41)
[2017-01-06] MEDS: FUROSEMIDE 20 MG/2 ML VIAL IV PUSH SCH ×2 (08:41→17:34)
[2017-01-06] MEDS: MULTIVITAMIN TAB PO SCH (08:42)
[2017-01-06] MEDS: SODIUM CHLORIDE 0.9% FLUSH 10 ML FLUSH IV FLUSH SCH ×2 (08:42→21:31)
[2017-01-06] MEDS ORDERED: PEG (High)/E-LYTE SOLN 4000 ML BTL PO ONE (10:00)
--- NOTE | 2017-01-06 11:28 | HHI.PR ---
Subjective Remarks Patient reports feeling better today. Breathing more comfortably. No chest pain. Objective Vitals Vital Signs Date Time Temp Pulse Resp B/P Pulse Ox O2 Delivery O2 Flow Rate FiO2 01/06/17 10:43 20 01/06/17 10:00 84 01/06/17 08:00 98.6 87 14 106/70 19 01/06/17 08:00 95 Nasal Cannula 4.00 01/06/17 08:00 84 01/06/17 06:00 84 01/06/17 04:00 97.7 85 14 105/70 98 01/06/17 04:00 98 Nasal Cannula 4.00 01/06/17 02:20 98 Nasal Cannula 3.00 01/06/17 02:00 92 01/06/17 00:19 100 12.00 01/06/17 00:00 87 01/06/17 00:00 98.8 87 15 85/55 100 01/06/17 00:00 100 Nasal Cannula 4.00 01/05/17 22:00 95 01/05/17 21:50 98 65 01/05/17 20:30 98 Nasal Cannula 4.00 01/05/17 20:15 100 Non-Rebreather 15.00 100 01/05/17 20:00 99.2 87 20 80/50 96 01/05/17 20:00 96 Bi-Pap 50 01/05/17 20:00 87 01/05/17 19:00 100 Simple Mask 6.00 01/05/17 18:00 90 01/05/17 16:20 100 65 01/05/17 16:00 99.8 87 20 90/64 100 01/05/17 16:00 100 Bi-Pap 65 01/05/17 16:00 87 01/05/17 14:34 91 80 01/05/17 14:00 100 01/05/17 13:17 93 Simple Mask 8.00 01/05/17 12:00 98.8 105 24 102/66 93 01/05/17 12:00 90 Bi-Pap 01/05/17 12:00 105 I/O 01/05/17 01/05/17 01/05/17 01/06/17 01/06/17 01/06/17 07:00 15:00 23:00 07:00 15:00 23:00 Intake Total 940 ml 0 ml 260 ml 110 ml Output Total 500 ml 550 ml 550 ml 500 ml Balance 440 ml -550 ml -290 ml -390 ml Intake Oral 240 ml 250 ml 100 ml IV Total 700 ml 0 ml 10 ml 10 ml Output Urine Total 500 ml 550 ml 550 ml 500 ml # Bowel Movements 1 1 2 1 Result Diagram: 01/06/1760201/06/17 06 Objective Remarks GENERAL: No acute distress CARDIOVASCULAR: Normal rate and regular rhythm without murmurs, gallops, or rubs. RESPIRATORY: Diminished breath sounds bilateral at the bases. Otherwise clear to auscultation GASTROINTESTINAL: Abdomen is obese but soft compared to yesterday. Nontender. MUSCULOSKELETAL: Extremities without cyanosis, or edema. NEURO: Alert & Oriented x4 to person, place, time, situation. Moves all ext x4. PSYCH: Appropriate mood and affect. Procedures 01/01 Upper endoscopy A/P Problem List: (1) Heme positive stool ICD Code: R19.5 Status: Acute (2) Cirrhosis of liver with ascites ICD Code: K74.60 Status: Chronic (3) Weakness ICD Code: R53.1 Status: Acute (4) Alcohol abuse ICD Code: F10.10 Status: Chronic (5) Tobacco abuse ICD Code: Z72.0 Status: Chronic (6) Type 2 diabetes mellitus ICD Code: E11.9 Status: Resolved (7) Frequent falls ICD Code: R29.6 Status: Acute Assessment and Plan 61-year-old male with: Acute hypoxemic respiratory failure: Secondary to worsening ascites. Patient transferred to ICU yesterday, underwent large volume paracentesis. Respiratory status markedly improved. He is stable for transfer to floor. - Continue supplemental oxygen as needed. - On scheduled Lasix and spironolactone per GI. Anemia, suspect GI bleed. - Appreciate gastroenterology service recommendations -EGD 01/01/17 showing gastritis in the gastric antrum, biopsy performed; duodenal inflammation was found at that duodenal bulb - GI planning on colonoscopy. Patient to restart GoLYTELY today. Ascites likely secondary to liver cirrhosis from alcohol abuse. - Patient status post paracentesis on 01/01/17 - Repeat large volume paracentesis on 01/05/17. - Patient started on scheduled Lasix and spironolactone. Monitor volume status. Hypokalemia: Replace. Check mag. He is getting scheduled Lasix. Will add scheduled potassium twice a day. Thrombocytopenia. Likely secondary to liver cirrhosis. Improving - Continue to monitor. Alcohol abuse - Alcohol withdrawal precautions with [facility] protocol - Thiamine, multivitamin Tobacco abuse cessation counseling - Nicotine patch Low back and right shoulder pain - Oxycodone 5 mg as needed for pain>5 Frequent falls/ Weakness. - Consult physical therapy for assistance with gait assessment and strengthening to prevent further debility -PT recommends rehab; plan to discharge to SNF for rehabilitation Type 2 diabetes mellitus, overall controlled -SSI with Accu-Cheks. DVT prophylaxis - SCDs, hold pharmacologic anticoagulation due to GI Bleed Discharge Planning Stable to transfer back to floor. Problem Qualifiers (1) Type 2 diabetes mellitus: Chika Forde MD Jan 06, 2017 11:28
[2017-01-06] MEDS: POTASSIUM CHLORIDE 20 MEQ CONTROLLED RELEASE TAB PO SCH ×2 (11:40→21:21)
--- NOTE | 2017-01-06 11:55 | EC ---
Study Study Date:01/05/2017 STUDY CONCLUSIONS SUMMARY - Left ventricle: The cavity size was normal. Wall thickness was normal. Systolic function was normal. The estimated ejection fraction was in the range of 60% to 65%. - Aortic valve: Valve area: 2.52cm^2 (Vmax). If LV function is below 40, please consider prescribing an ACEI or ARB or document rationale for non-use. PROCEDURE DATA STUDY STATUS: Elective. Procedure: Transthoracic echocardiography. Image quality was suboptimal. Scanning was performed from the parasternal, apical, and subcostal acoustic windows. Study completion: The patient tolerated the procedure well. Transthoracic echocardiography. M-mode, complete 2D, complete spectral Doppler, and color Doppler. Height: Height: 68in. Weight: Weight: 193.6lb. Body mass index: BMI: 29.5kg/m^2. Body surface area: BSA: 2.02m^2. Patient status: Inpatient. CARDIAC ANATOMY LEFT VENTRICLE: The cavity size was normal. Wall thickness was normal. Systolic function was normal. The estimated ejection fraction was in the range of 60% to 65%. Images were inadequate for LV wall motion assessment. AORTIC VALVE: Trileaflet; normal thickness leaflets. Doppler: Transvalvular velocity was within the normal range. There was no stenosis. No regurgitation. Valve area: 2.52cm^2 (Vmax). Indexed valve area: 1.25cm^2/m^2 (Vmax). AORTA: Aortic root: The aortic root was normal in size. MITRAL VALVE: Structurally normal valve. Doppler: Transvalvular velocity was within the normal range. There was no evidence for stenosis. No regurgitation. Valve area by pressure half-time: 4.31cm^2. Indexed valve area by pressure half-time: 2.13cm^2/m^2. Peak gradient: 2mm Hg (D). LEFT ATRIUM: The atrium was normal in size. RIGHT VENTRICLE: The cavity size was normal. Wall thickness was normal. PULMONIC VALVE: Not visualized. TRICUSPID VALVE: Poorly visualized. Structurally normal valve. Doppler: Transvalvular velocity was within the normal range. No regurgitation. RIGHT ATRIUM: The atrium was normal in size. PERICARDIUM: There was no pericardial effusion. Patient weight: 193.6lb _Ejection fraction:_ 65-75% _Fractional shortening:_ 32% up to 5Kg 5-11.5Kg 11.6-22.9Kg 23-45Kg 45-57Kg Aortic Root 7-13 <17 13-22 17-27 17-27 LA diam 6-13 <23 24-38 33-47 37-40 RVID 10-17 7-15 7-15 7-18 8-17 LVIDd 12-22 <32 24-38 33-47 37-40 LVPW 2-4 3-6 5-7 6-8 7-8 IVS 2-4 3-6 5-7 6-8 7-8 BASIC MEASUREMENTS ADULT NORMAL Aortic valve Leaflet separation 22 mm 15-26 Left atrium Anterior-posterior dimension 37 mm Anterior-posterior dimension index 1.83 cm/m^2 <2.2 BASIC MEASUREMENTS ADULT NORMAL Aortic valve Leaflet separation 22 mm 15-26 Aorta Root diameter, ED *38 mm 20-37 DOPPLER MEASUREMENTS ADULT NORMAL Aortic valve Peak velocity, S 148 cm/s Valve area, Vmax 2.52 cm^2 Valve area index, Vmax 1.25 cm^2/m^2 Mitral valve Peak E-wave velocity 74 cm/s Peak A-wave velocity 70.6 cm/s Pressure half-time 51 ms Peak gradient, D 2 mm Hg Peak E/A ratio 1 Valve area, pressure half-time 4.31 cm^2 Valve area index, pressure half-time 2.13 cm^2/m^2 LEGEND: Mean values are shown as u=mean value. Asterisk (*) ramírez values outside specified normal range. Prepared and signed by Yogesh Estrella [id number]
[2017-01-06 12:01] LABS: MAGNESIUM 2.3 MG/DL (1.5-2.5)
--- NOTE | 2017-01-06 13:17 | HHI.GIFU ---
Subjective Remarks Pt resting comfortably in bed. Denies abd pain, n/v, diarrhea, tarry stools. Objective Vitals I&O Vital Signs Date Time Temp Pulse Resp B/P Pulse Ox O2 Delivery O2 Flow Rate FiO2 01/06/17 12:05 97 Nasal Cannula 3.00 01/06/17 12:00 86 01/06/17 12:00 95 Nasal Cannula 4.00 01/06/17 12:00 98.4 89 15 112/70 18 01/06/17 10:43 20 01/06/17 10:00 84 01/06/17 08:00 98.6 87 14 106/70 19 01/06/17 08:00 95 Nasal Cannula 4.00 01/06/17 08:00 84 01/06/17 06:00 84 01/06/17 04:00 97.7 85 14 105/70 98 01/06/17 04:00 98 Nasal Cannula 4.00 01/06/17 02:20 98 Nasal Cannula 3.00 01/06/17 02:00 92 01/06/17 00:19 100 12.00 01/06/17 00:00 87 01/06/17 00:00 98.8 87 15 85/55 100 01/06/17 00:00 100 Nasal Cannula 4.00 01/05/17 22:00 95 01/05/17 21:50 98 65 01/05/17 20:30 98 Nasal Cannula 4.00 01/05/17 20:15 100 Non-Rebreather 15.00 100 01/05/17 20:00 99.2 87 20 80/50 96 01/05/17 20:00 96 Bi-Pap 50 01/05/17 20:00 87 01/05/17 19:00 100 Simple Mask 6.00 01/05/17 18:00 90 01/05/17 16:20 100 65 01/05/17 16:00 99.8 87 20 90/64 100 01/05/17 16:00 100 Bi-Pap 65 01/05/17 16:00 87 01/05/17 14:34 91 80 01/05/17 14:00 100 01/05/17 13:17 93 Simple Mask 8.00 I/O 01/05/17 01/05/17 01/05/17 01/06/17 01/06/17 01/06/17 07:00 15:00 23:00 07:00 15:00 23:00 Intake Total 940 ml 0 ml 260 ml 110 ml Output Total 500 ml 550 ml 550 ml 500 ml 475 ml Balance 440 ml -550 ml -290 ml -390 ml -475 ml Intake Oral 240 ml 250 ml 100 ml IV Total 700 ml 0 ml 10 ml 10 ml Output Urine Total 500 ml 550 ml 550 ml 500 ml 475 ml # Bowel Movements 1 1 2 1 1 Laboratory Laboratory Tests Test 01/06/17 06:03 White Blood Count 5.2 Red Blood Count 2.60 Hemoglobin 9.9 Hematocrit 28.8 Mean Corpuscular Volume 110.7 Mean Corpuscular Hemoglobin 37.9 Mean Corpuscular Hemoglobin 34.2 Concent Red Cell Distribution Width 15.1 Platelet Count 115 Mean Platelet Volume 7.6 Neutrophils (%) (Auto) 83.2 Lymphocytes (%) (Auto) 9.4 Monocytes (%) (Auto) 7.0 Eosinophils (%) (Auto) 0.1 Basophils (%) (Auto) 0.3 Neutrophils # (Auto) 4.3 Lymphocytes # (Auto) 0.5 Monocytes # (Auto) 0.4 Eosinophils # (Auto) 0.0 Basophils # (Auto) 0.0 CBC Comment DIFF FINAL Differential Comment Prothrombin Time 14.9 Prothromb Time International 1.3 Ratio Sodium Level 140 Potassium Level 2.7 Chloride Level 103 Carbon Dioxide Level 29.4 Anion Gap 8 Blood Urea Nitrogen 17 Creatinine 0.48 Estimat Glomerular Filtration 177 Rate Random Glucose 116 Calcium Level 8.0 Magnesium Level 2.3 Date/Time Procedure Status Source Growth 01/05/17 10:45 Gram Stain - Final Resulted Fluid Peritoneal Fluid 01/05/17 10:45 Body Fluid Culture Resulted Fluid Peritoneal Fluid Pending Imaging Last Impressions Chest X-Ray 01/06/17 0600 Signed Impressions: Service Date/Time: Friday, January 06, 2017 03:46 - CONCLUSION: Persistent bibasilar densities. Merritt Jasmine MD Abdomen Ultrasound 01/04/17 0000 Signed Impressions: Service Date/Time: Wednesday, January 04, 2017 13:55 - CONCLUSION: There is a large amount of ascites noted throughout the abdomen. Garry Carter MD Renal Ultrasound 01/03/17 0000 Signed Impressions: Service Date/Time: Tuesday, January 03, 2017 22:04 - CONCLUSION: 1. Kidneys mildly echogenic characteristic of mild medical renal disease. No hydronephrosis. Moderate ascites. Esteban Lee MD Cyst Biopsy Asp-Paracentesis US 01/01/17 0000 Signed Impressions: Service Date/Time: Sunday, January 01, 2017 15:24 - CONCLUSION: Uncomplicated ultrasound guided paracentesis. Bruce Medellin MD FACR Physical Exam HEENT: Normocephalic; atraumatic CHEST: CTA CARDIAC: RRR ABDOMEN: Soft, distended, mildly tender; no hepatosplenomegaly; bowel sounds are present in all four quadrants. Ascites EXTREMITIES: BUE ecchymotic, dry abrasions. REGISTERED PHARMACY TECHNICIAN: Lethargic, oriented to self, person, and place Assessment and Plan Plan ASSESSMENT: - GIB, Hemoccult (+) stool with complaints of intermittent melena but non recently. Hx of liver cirrhosis in EMR- pt not aware of this. Denies any hx of PUD, NSAID use. s/p EGD -----> erythematous gastritis gastric antrum, duodenal inflammation, duodenal bulb. Plan was for colonoscopy 01/04, but he only took 1/2 prep and did not have a bowel movement. He refused the Golytely, but was agreeable to Magnesium citrate and SSE. This was planned for yesterday, but had respiratory decompensation overnight and was transferred to the unit yesterday. PPI. HH 9.9, 28.8. - Erythematous gastritis, duodenitis. Pathology duodenal mucosa without significant histologic abnormality, features consistent with a reactive gastropathy. PPI. - Anemia, acute blood loss. S/P EGD as above. Plan to try colonoscopy again tomorrow. HH 9.9, 28.8 - Ascites. S/P Paracentesis (01/05/17 and 01/01/17). Cytology still pending. On Lasix, Spironolactone. Adjust as b/p allows - Lethargy. Pt lethargic, he is oriented, but inappropriate at times. Ammonia okay, 23. - Liver cirrhosis with ongoing ETOH abuse. LFT stable- T. Bili 1.3, AST 15, ALT 7 Alk Phosph 149. - Respiratory Insufficiency, failure, improved after paracentesis, was able to come off BIPAP and leave [facility] [place] [place]. CXR with slight worsening bibasilar consolidation. - Right foot/toes erythematous. per primary - DM, CHF, CVA, per primary PLAN: - Colonoscopy tomorrow - Mg Citrate prep - clear liquid diet now - NPO after midnight - Await cytology from paracentesis (01/05) - Cont. PPI - Monitor HH - Transfuse as necessary - continue low dose Lasix and Spironolactone- closely monitor B/P - Repeat EGD in 8 weeks - Supportive care - Further recommendations to follow based on results of above - Pt seen and examined by Dr. Almodovar and myself and this note is written on his behalf Katie Paz Jan 06, 2017 13:17
[2017-01-06] MEDS ORDERED: MAGNESIUM CITRATE SOLN 300 ML BTL PO ONE ×2 (18:00→20:00)
[2017-01-06 21:02] LABS: MEAN CORPUSCULAR HGB CONC 36.2 % (32.0-36.0)
[2017-01-06] MEDS: PANTOPRAZOLE SOD 40 MG DELAYED RELEASE TAB PO SCH (21:21)
[2017-01-06] MEDS: LORazepam 1 MG TAB PO PRN (21:31)
[2017-01-07] VITALS (7 sets, daily range): BP systolic 102–125; BP diastolic 60–80; PULSE 85–104; RESP 16–22; TEMP 96.8–98.8; O2SAT 91–93
[2017-01-07] MEDS: CHLORHEXIDINE GLUCONATE 2 % 1 PACK (2 CLOTHS)(taper/protocol) TOPICAL SCH (04:00)
[2017-01-07 06:43] LABS: HEMATOCRIT 30.9 % (39.0-51.0); MEAN CELL VOLUME 114.2 FL (80.0-100.0); MEAN CORPUSCULAR HEMOGLOBIN 41.3 PG (27.0-34.0); PLATELET COUNT 140 TH/MM3 (150-450); RED CELL DISTRIBUTION WIDTH 15.2 % (11.6-17.2); WHITE BLOOD COUNT 4.4 TH/MM3 (4.0-11.0)
[2017-01-07 06:52] LABS: REVIEW FLAG FINAL
[2017-01-07 07:42] LABS: BICARBONATE 27.4 MEQ/L (21.0-32.0); INDIRECT BILIRUBIN 0.6 MG/DL (0.0-0.8); POTASSIUM 3.3 MEQ/L (3.5-5.1); TOTAL BILIRUBIN ADULT 1.2 MG/DL (0.2-1.0)
[2017-01-07] MEDS: POTASSIUM CHLORIDE 20 MEQ CONTROLLED RELEASE TAB PO SCH ×2 (08:00→21:41)
[2017-01-07] MEDS: MULTIVITAMIN TAB PO SCH (08:00)
[2017-01-07] MEDS: FUROSEMIDE 20 MG/2 ML VIAL IV PUSH SCH ×2 (08:00→17:15)
[2017-01-07] MEDS: SPIRONOLACTONE 25 MG TAB PO SCH (08:00)
[2017-01-07] MEDS: THIAMINE HCL 100 MG TAB PO SCH (08:00)
[2017-01-07] MEDS: SODIUM CHLORIDE 0.9% FLUSH 10 ML FLUSH IV FLUSH SCH ×2 (08:01→21:00)
[2017-01-07] MEDS: REMOVE OLD PATCH T-DERMAL SCH (08:01)
[2017-01-07] MEDS: NICOTINE 14 MG/24 HR PATCH T-DERMAL SCH (08:01)
[2017-01-07] MEDS ORDERED: PHENYLEPHRINE HCL 10 MG/ML VIAL IV ONE (11:04)
[2017-01-07] MEDS ORDERED: PROPOFOL 200 MG/20 ML AMP IV ONE (11:04)
[2017-01-07] MEDS ORDERED: ONDANSETRON HCL 4 MG/2 ML VIAL IV PUSH ONE (11:04)
[2017-01-07] MEDS ORDERED: DO NOT ADM ANY ANTICOAGULANT DRUGS PRN (11:35)
--- NOTE | 2017-01-07 11:44 | GIPROC ---
[facility] [address] [facility]. [facility], [address] COLONOSCOPY PROCEDURE REPORT EXAM DATE: 01/07/2017 PATIENT NAME: Yonny Mercedes MR #: [id number] BIRTHDATE: 1955 ENDOSCOPIST: Farida Almodovar MD ORDER #: [id number] BASS STRING WINDER: Donald Steven and Eleanor Jacobs STATUS: inpatient INDICATIONS: The patient is a 61 yr old male here for a colonoscopy due to anemia, non-specific PROCEDURE PERFORMED: Colonoscopy with polypectomy MEDICATIONS: None and Per Anesthesia. PREP QUALITY: fair ESTIMATED BLOOD LOSS: None CONSENT: The patient understands the risks and benefits of the procedure and understands that these risks include, but are not limited to: sedation, allergic reaction, infection, perforation and/or bleeding. Alternative means of evaluation and treatment include, among others: physical exam, x-rays, and/or surgical intervention. The patient elects to proceed with this endoscopic procedure. medical equipment was checked for proper function. Hand hygiene and appropriate measures for infection prevention was taken. After the risks, benefits and alternatives of the procedure were thoroughly explained, Informed consent was verified, confirmed and timeout was successfully executed by the treatment team. A digital exam revealed no abnormalities of the rectum The Pentax [id number] endoscope was introduced through the anus and advanced to the cecum, which was identified by both the appendix and ileocecal valve. The instrument was then slowly withdrawn as the colon was fully examined. COLON FINDINGS: Some stool throughout the colon. Flat polyp 1 cm in the cecum reomved by snare. The colon mucosa was otherwise normal. Retroflexed views revealed medium internal hemorrhoids The scope was then completely withdrawn from the patient and the procedure terminated. ADVERSE EVENTS: There were no complications. IMPRESSIONS: 1. Some stool throughout the colon 2. Flat polyp 1 cm in the cecum reomved by snare 3. The colon mucosa was otherwise normal 4. Retroflexed views revealed medium internal hemorrhoids 5. Revealed no abnormalities of the rectum RECOMMENDATIONS: 1. Yearly hemoccult 2. High fiber diet 3. Await biopsy results. Biopsy results will not be ready for 7-10 days. If you don't hear from us in two weeks, call our office for results. RECALL: Return 3 years Colonoscopy Farida Almodovar MD eSigned: Farida Almodovar MD 01/07/2017 11:43 AM cc:
[2017-01-07] MEDS ORDERED: *RESP: ALBUTEROL 2.5 MG/3 ML NEB (PRN) PERIprocedural Use ONLY NEB ONE (11:51)
--- NOTE | 2017-01-07 12:06 | HHI.GIFU ---
Subjective Remarks feels ok, tolerated most of the prep.no sign of active bleed Objective Vitals I&O Vital Signs Date Time Temp Pulse Resp B/P Pulse Ox O2 Delivery O2 Flow Rate FiO2 01/07/17 11:45 94 19 102/68 93 Nasal Cannula 4 01/07/17 11:34 98.0 90 16 101/75 92 Nasal Cannula 4 01/07/17 09:57 93 Nasal Cannula 4.00 01/07/17 09:30 98.1 91 16 117/80 93 01/07/17 08:00 97.1 93 22 120/79 93 01/07/17 04:01 98.1 104 18 117/80 91 01/07/17 00:01 97.9 91 18 125/80 93 01/06/17 21:03 96.8 92 18 103/74 96 01/06/17 21:00 96 Nasal Cannula 4.00 01/06/17 20:12 93 Nasal Cannula 4.00 01/06/17 16:00 97.0 88 18 111/68 94 01/06/17 13:30 97.5 91 18 102/71 95 01/06/17 12:05 97 Nasal Cannula 3.00 I/O 01/06/17 01/06/17 01/06/17 01/07/17 01/07/17 01/07/17 07:00 15:00 23:00 07:00 15:00 23:00 Intake Total 110 ml 480 ml 780 ml 0 ml 700 ml Output Total 500 ml 1300 ml 650 ml 200 ml Balance -390 ml -820 ml 130 ml -200 ml 700 ml Intake Oral 100 ml 480 ml 780 ml 0 ml IV Total 10 ml Other 700 ml Output Urine Total 500 ml 1300 ml 650 ml 200 ml # Bowel Movements 1 1 0 1 Laboratory Laboratory Tests Test 01/07/17 05:30 White Blood Count 4.4 Red Blood Count 2.70 Hemoglobin 11.2 Hematocrit 30.9 Mean Corpuscular Volume 114.2 Mean Corpuscular Hemoglobin 41.3 Mean Corpuscular Hemoglobin 36.2 Concent Red Cell Distribution Width 15.2 Platelet Count 140 Mean Platelet Volume 7.8 Sodium Level 140 Potassium Level 3.3 Chloride Level 102 Carbon Dioxide Level 27.4 Anion Gap 11 Blood Urea Nitrogen 17 Creatinine 0.48 Estimat Glomerular Filtration 177 Rate Random Glucose 94 Calcium Level 8.3 Total Bilirubin 1.2 Direct Bilirubin 0.6 Indirect Bilirubin 0.6 Aspartate Amino Transf 20 (AST/SGOT) Alanine Aminotransferase 9 (ALT/SGPT) Alkaline Phosphatase 121 Total Protein 6.2 Albumin 2.0 Date/Time Procedure Status Source Growth 01/05/17 10:45 Gram Stain - Final Resulted Fluid Peritoneal Fluid 01/05/17 10:45 Body Fluid Culture - Preliminary Resulted Fluid Peritoneal Fluid NO GROWTH IN 48 HOURS. Physical Exam HEENT: Normocephalic; atraumatic CHEST: CTA CARDIAC: RRR ABDOMEN: Soft, distended, mildly tender; no hepatosplenomegaly; bowel sounds are present in all four quadrants. less Ascites after Tap EXTREMITIES: BUE ecchymotic, dry abrasions. [employer]OP[employer] REP: Lethargic, oriented to self, person, and place Assessment and Plan Plan ASSESSMENT: - GIB, Hemoccult (+) stool with complaints of intermittent melena but non recently. Hx of liver cirrhosis in EMR- pt not aware of this. Denies any hx of PUD, NSAID use. s/p EGD -----> erythematous gastritis gastric antrum, duodenal inflammation, duodenal bulb. Plan was for colonoscopy 01/04, but he only took 1/2 prep and did not have a bowel movement. He refused the Golytely, but was agreeable to Magnesium citrate and SSE. This was planned for yesterday, but had respiratory decompensation overnight and was transferred to the unit yesterday. PPI. HH 9.9, 28.8. - Erythematous gastritis, duodenitis. Pathology duodenal mucosa without significant histologic abnormality, features consistent with a reactive gastropathy. PPI. - Anemia, acute blood loss. S/P EGD as above. Plan to try colonoscopy again tomorrow. HH 9.9, 28.8 - Ascites. S/P Paracentesis (01/05/17 and 01/01/17). Cytology still pending. On Lasix, Spironolactone. Adjust as b/p allows - Lethargy. Pt lethargic, he is oriented, but inappropriate at times. Ammonia okay, 23. - Liver cirrhosis with ongoing ETOH abuse. LFT stable- T. Bili 1.3, AST 15, ALT 7 Alk Phosph 149. - Respiratory Insufficiency, failure, improved after paracentesis, was able to come off BIPAP and leave [facility]. CXR with slight worsening bibasilar consolidation. - Right foot/toes erythematous. per primary - DM, CHF, CVA, per primary 4-- doing ok, tolerated prep, colonoscopy showed one polyp removed. no active bleed, most likely chronic Dx PLAN: - cardiac diet now - NPO after midnight - Await cytology from paracentesis (01/05) - Cont. PPI - Monitor HH - Transfuse as necessary - continue low dose Lasix and Spironolactone- closely monitor B/P - Repeat EGD in 8 weeks - Supportive care - capsule endoscopy as outpatient. Farida Almodovar MD Jan 07, 2017 12:06
--- NOTE | 2017-01-07 14:30 | HHI.PR ---
Subjective Remarks Patient seen after colonoscopy. He reports he is feeling overall tired but denies increased in shortness of breath, no abdominal pain, no nausea or vomiting. Objective Vitals Vital Signs Date Time Temp Pulse Resp B/P Pulse Ox O2 Delivery O2 Flow Rate FiO2 01/07/17 12:15 98.1 90 18 104/73 95 Nasal Cannula 4 01/07/17 12:00 95 20 106/73 95 Nasal Cannula 4 01/07/17 12:00 96.8 87 20 102/60 93 01/07/17 11:45 94 19 102/68 93 Nasal Cannula 4 01/07/17 11:34 98.0 90 16 101/75 92 Nasal Cannula 4 01/07/17 09:57 93 Nasal Cannula 4.00 01/07/17 09:30 98.1 91 16 117/80 93 01/07/17 08:00 97.1 93 22 120/79 93 01/07/17 04:01 98.1 104 18 117/80 91 01/07/17 00:01 97.9 91 18 125/80 93 01/06/17 21:03 96.8 92 18 103/74 96 01/06/17 21:00 96 Nasal Cannula 4.00 01/06/17 20:12 93 Nasal Cannula 4.00 01/06/17 16:00 97.0 88 18 111/68 94 I/O 01/06/17 01/06/17 01/06/17 01/07/17 01/07/17 01/07/17 07:00 15:00 23:00 07:00 15:00 23:00 Intake Total 110 ml 480 ml 780 ml 0 ml 940 ml Output Total 500 ml 1300 ml 650 ml 200 ml 1375 ml Balance -390 ml -820 ml 130 ml -200 ml -435 ml Intake Oral 100 ml 480 ml 780 ml 0 ml 240 ml IV Total 10 ml Other 700 ml Output Urine Total 500 ml 1300 ml 650 ml 200 ml 1375 ml # Bowel Movements 1 1 0 1 1 Result Diagram: 01/07/17 0530 01/07/17 0530 Imaging Last Impressions Chest X-Ray 01/06/17 0600 Signed Impressions: Service Date/Time: Friday, January 06, 2017 03:46 - CONCLUSION: Persistent bibasilar densities. Merritt Jasmine MD Abdomen Ultrasound 01/04/17 0000 Signed Impressions: Service Date/Time: Wednesday, January 04, 2017 13:55 - CONCLUSION: There is a large amount of ascites noted throughout the abdomen. Garry Carter MD Renal Ultrasound 01/03/17 0000 Signed Impressions: Service Date/Time: Tuesday, January 03, 2017 22:04 - CONCLUSION: 1. Kidneys mildly echogenic characteristic of mild medical renal disease. No hydronephrosis. Moderate ascites. Esteban Lee MD Cyst Biopsy Asp-Paracentesis US 01/01/17 0000 Signed Impressions: Service Date/Time: Sunday, January 01, 2017 15:24 - CONCLUSION: Uncomplicated ultrasound guided paracentesis. Bruce [place] MD FACR Objective Remarks GENERAL: No acute distress CARDIOVASCULAR: Normal rate and regular rhythm without murmurs, gallops, or rubs. RESPIRATORY: Diminished breath sounds bilateral at the bases. Otherwise clear to auscultation GASTROINTESTINAL: Abdomen is obese but soft compared to yesterday. Nontender. MUSCULOSKELETAL: Extremities without cyanosis, or edema. NEURO: Alert & Oriented x4 to person, place, time, situation. Moves all ext x4. PSYCH: Appropriate mood and affect. Procedures 01/01 Upper endoscopy A/P Problem List: (1) Heme positive stool ICD Code: R19.5 Status: Acute (2) Cirrhosis of liver with ascites ICD Code: K74.60 Status: Chronic (3) Weakness ICD Code: R53.1 Status: Acute (4) Alcohol abuse ICD Code: F10.10 Status: Chronic (5) Tobacco abuse ICD Code: Z72.0 Status: Chronic (6) Type 2 diabetes mellitus ICD Code: E11.9 Status: Resolved (7) Frequent falls ICD Code: R29.6 Status: Acute Assessment and Plan 61-year-old male with: Acute hypoxemic respiratory failure: This is secondary to ascites. Respiratory status markedly improved. - Continue supplemental oxygen as needed. - On scheduled Lasix and spironolactone per GI. Anemia, suspect GI bleed: Improving. - Appreciate gastroenterology service recommendations -EGD 01/01/17 showing gastritis in the gastric antrum, biopsy performed; duodenal inflammation was found at that duodenal bulb -Patient status post colonoscopy and polypectomy. Ascites likely secondary to liver cirrhosis from alcohol abuse. - Patient status post paracentesis on 01/01/17 - Repeat large volume paracentesis on 01/05/17. - Patient started on scheduled Lasix and spironolactone. Monitor volume status. Hypokalemia: Replace. Check mag. He is getting scheduled Lasix. Will add scheduled potassium twice a day. Thrombocytopenia. Likely secondary to liver cirrhosis. Improving - Continue to monitor. Alcohol abuse - Alcohol withdrawal precautions with [facility] protocol - Thiamine, multivitamin Tobacco abuse cessation counseling - Nicotine patch Low back and right shoulder pain - Oxycodone 5 mg as needed for pain>5 Frequent falls/ Weakness. - Consult physical therapy for assistance with gait assessment and strengthening to prevent further debility -PT recommends rehab; plan to discharge to SNF for rehabilitation Type 2 diabetes mellitus, overall controlled -SSI with Accu-Cheks. DVT prophylaxis - SCDs, hold pharmacologic anticoagulation due to GI Bleed Discharge Planning Patient will need custodial facility. Problem Qualifiers (1) Type 2 diabetes mellitus: Chika Forde MD Jan 07, 2017 14:30
[2017-01-07] MEDS: PANTOPRAZOLE SOD 40 MG DELAYED RELEASE TAB PO SCH (21:41)
[2017-01-07] MEDS ORDERED: TEMAZEPAM 7.5 MG CAP PO ONE (22:30)
[2017-01-08 00:01] VITALS: BP 110/72; PULSE 86; RESP 16; TEMP 98.1; O2SAT 93
[2017-01-08] MEDS: CHLORHEXIDINE GLUCONATE 2 % 1 PACK (2 CLOTHS)(taper/protocol) TOPICAL SCH (04:00)
[2017-01-08 04:13] VITALS: BP 105/69; PULSE 74; RESP 16; TEMP 96.7; O2SAT 94
[2017-01-08 07:07] LABS: HEMATOCRIT 32.4 % (39.0-51.0); MEAN CELL VOLUME 110.8 FL (80.0-100.0); MEAN CORPUSCULAR HEMOGLOBIN 36.9 PG (27.0-34.0); MEAN CORPUSCULAR HGB CONC 33.3 % (32.0-36.0); PLATELET COUNT 138 TH/MM3 (150-450); RED BLOOD COUNT 2.93 MIL/MM3 (4.50-5.90); REVIEW FLAG FINAL; WHITE BLOOD COUNT 4.2 TH/MM3 (4.0-11.0)
[2017-01-08 07:33] LABS: BICARBONATE 29.8 MEQ/L (21.0-32.0)
[2017-01-08 08:00] VITALS: BP 112/79; PULSE 92; RESP 18; TEMP 97.8; O2SAT 95
[2017-01-08] MEDS: SPIRONOLACTONE 25 MG TAB PO SCH (08:30)
[2017-01-08] MEDS: THIAMINE HCL 100 MG TAB PO SCH (08:30)
[2017-01-08] MEDS: POTASSIUM CHLORIDE 20 MEQ CONTROLLED RELEASE TAB PO SCH (08:30)
[2017-01-08] MEDS: REMOVE OLD PATCH T-DERMAL SCH (08:30)
[2017-01-08] MEDS: MULTIVITAMIN TAB PO SCH (08:30)
[2017-01-08] MEDS: SODIUM CHLORIDE 0.9% FLUSH 10 ML FLUSH IV FLUSH SCH (08:30)
[2017-01-08] MEDS: FUROSEMIDE 20 MG/2 ML VIAL IV PUSH SCH (08:30)
[2017-01-08] MEDS: NICOTINE 14 MG/24 HR PATCH T-DERMAL SCH (08:30)
[2017-01-08 12:00] VITALS: BP 106/74; PULSE 87; RESP 18; TEMP 98.8; O2SAT 95
--- NOTE | 2017-01-08 12:20 | HHI.DS ---
Discharge Summary Admission Date Jan 01, 2017 at 21:04 Discharge Date: Jan 08, 2017 Admitting Diagnosis Heme positive stools, worsening weakness, cirrhosis with ascitis. (1) Heme positive stool ICD Code: R19.5 (2) Cirrhosis of liver with ascites ICD Code: K74.60 (3) Weakness ICD Code: R53.1 (4) Alcohol abuse ICD Code: F10.10 (5) Tobacco abuse ICD Code: Z72.0 (6) Type 2 diabetes mellitus ICD Code: E11.9 (7) Frequent falls ICD Code: R29.6 Procedures 01/01 Upper endoscopy Brief History - From Admission HPI from the admitting physician: Mr. Mercedes is a 61 y/o male with a history of T2DM (states he checks blood glucose at home and states blood glucose is controlled without medications), CVA , alcoholic cirrhosis, and prostate CA who presented to the ER on 12/31/16 with complaint of right shoulder pain, low back pain, and generalized weakness. His hemoglobin is noted to have dropped from 13.3 on 12/29/2016 to 11.8. Stool was checked in the ER and was trace heme positive. The patient is seen in the CDU. He states that he came here because of severe right shoulder pain that's been present for about 3 weeks and centralized low back pain that is severe and chronic. He reports no increase in lightheadedness and states that he's had chronic lightheadedness for about 7 years. He states that he fell multiple times with the last fall occurring 2 weeks ago. He states he has fallen 20 times in the last few weeks and relates his falls to hypoglycemia from taking metformin. He self discontinued medication about 3 weeks ago. He requires a walker for ambulation but states he is too weak to use a walker at this point. He reports shortness of breath with ambulation. He drinks 4-5 glasses of wine daily but states he's only had 2-3 glasses over the past couple of days. He denies any bloody or tarry stools. He complains of abdomen pain with bloating for "months". Last paracentesis was 3 years ago and he states that afterwards he felt "like a million bucks". . CBC/BMP: 01/08/17 0620 01/08/17 0620 Significant Findings Laboratory Tests Test 01/06/17 01/07/17 01/08/17 06:03 05:30 06:20 Red Blood Count 2.60 MIL/MM3 2.70 MIL/MM3 2.93 MIL/MM3 (4.50-5.90) (4.50-5.90) (4.50-5.90) Hemoglobin 9.9 GM/DL 11.2 GM/DL 10.8 GM/DL (13.0-17.0) (13.0-17.0) (13.0-17.0) Hematocrit 28.8 % 30.9 % 32.4 % (39.0-51.0) (39.0-51.0) (39.0-51.0) Mean Corpuscular Volume 110.7 FL 114.2 FL 110.8 FL (80.0-100.0) (80.0-100.0) (80.0-100.0) Mean Corpuscular Hemoglobin 37.9 PG 41.3 PG 36.9 PG (27.0-34.0) (27.0-34.0) (27.0-34.0) Platelet Count 115 TH/MM3 140 TH/MM3 138 TH/MM3 (150-450) (150-450) (150-450) Neutrophils (%) (Auto) 83.2 % (16.0-70.0) Lymphocytes # (Auto) 0.5 TH/MM3 (1.0-4.8) Prothrombin Time 14.9 SEC (9.8-11.6) Potassium Level 2.7 MEQ/L 3.3 MEQ/L 3.0 MEQ/L (3.5-5.1) (3.5-5.1) (3.5-5.1) Creatinine 0.48 MG/DL 0.48 MG/DL (0.60-1.30) (0.60-1.30) Random Glucose 116 MG/DL (74-106) Calcium Level 8.0 MG/DL 8.3 MG/DL 7.8 MG/DL (8.5-10.1) (8.5-10.1) (8.5-10.1) Mean Corpuscular Hemoglobin 36.2 % Concent (32.0-36.0) Total Bilirubin 1.2 MG/DL (0.2-1.0) Direct Bilirubin 0.6 MG/DL (0.0-0.2) Alanine Aminotransferase 9 U/L (12-78) (ALT/SGPT) Alkaline Phosphatase 121 U/L (45-117) Total Protein 6.2 GM/DL (6.4-8.2) Albumin 2.0 GM/DL (3.4-5.0) PE at Discharge GENERAL: No acute distress CARDIOVASCULAR: Normal rate and regular rhythm without murmurs, gallops, or rubs. RESPIRATORY: Diminished breath sounds bilateral at the bases. Otherwise clear to auscultation GASTROINTESTINAL: Abdomen is obese but soft compared to yesterday. Nontender. MUSCULOSKELETAL: Extremities without cyanosis, or edema. NEURO: Alert & Oriented x4 to person, place, time, situation. Moves all ext x4. PSYCH: Appropriate mood and affect. Pt update on day of discharge Patient reports he is feeling better today. No longer short of breath. Abdomen is soft. He understand that he needs rehab. We discussed discharged planning at length and the need to follow up. Hospital Course 61-year-old male admitted and treated for the following: Acute hypoxemic respiratory failure: This is secondary to ascites. Patient respiratory status initially worsened once fluid reaccumulated after the first paracentesis. Respiratory status markedly improved after a second paracentesis and scheduled diuretics. - On scheduled Lasix and spironolactone per GI. Anemia, suspect GI bleed: Improving. - Appreciate gastroenterology service recommendations -EGD 01/01/17 showing gastritis in the gastric antrum, biopsy performed; duodenal inflammation was found at that duodenal bulb -Patient status post colonoscopy and polypectomy. Ascites likely secondary to liver cirrhosis from alcohol abuse. - Patient status post paracentesis on 01/01/17 - Repeat large volume paracentesis on 01/05/17. - Patient started on scheduled Lasix and spironolactone. Hypokalemia: Replaced. Scheduled potassium was added. Thrombocytopenia. Likely secondary to liver cirrhosis. Improved during the hospitalization. - Continue to monitor. Alcohol abuse - Alcohol withdrawal precautions with [facility] protocol - Thiamine, multivitamin Tobacco abuse cessation counseling - Nicotine patch Low back and right shoulder pain - Oxycodone 5 mg as needed for pain>5 Frequent falls/ Weakness. - PT followed the patient. He is discharged to SNF to continue rehab efforts. Type 2 diabetes mellitus, overall controlled with diabetic diet. Pt Condition on Discharge: Stable Discharge Disposition: Discharge to SNF Discharge Time: > 30 minutes Discharge Instructions DIET: Follow Instructions for: Heart Healthy Diet Activities you can perform: Regular-No Restrictions Follow up Referrals: Gastroenterology - 4 Weeks @ [facility]CUSTODIAL/ with Po New Medications: Furosemide (Lasix) 40 Mg Tab 40 MG PO DAILY #30 Ref 0 TAB Lorazepam (Ativan) 1 Mg Tab 1 MG PO Q6H PRN ANXIETY AND/OR AGITATION #15 Ref 0 TAB Oxycodone (Oxycodone) 5 Mg Tab 5 MG PO Q4H PRN PAIN GREATER THAN 5 #20 TAB Pantoprazole (Pantoprazole) 40 Mg Tab 40 MG PO HS #30 TAB Potassium Chloride Microencaps (Potassium Chloride Microencaps) 20 Meq Tab 20 MEQ PO Q12HR #60 TAB Thiamine (Vitamin B-1) 100 Mg Tab 100 MG PO DAILY #30 TAB ([Spironolactone]) 25 MG TAB 25 MG PO DAILY #30 TAB Discontinued Medications: Clonazepam (Clonazepam) 0.5 Mg Tab 0.5 MG PO TID #90 Ref 0 TAB Chika Forde MD Jan 08, 2017 12:20
[2017-01-08] MEDS ORDERED: OXYC-392 PO (12:22)
[2017-01-08] MEDS ORDERED: VITA100T2 PO (12:22)
[2017-01-08] MEDS ORDERED: FURO1TAB60 PO (12:22)
[2017-01-08] MEDS ORDERED: PANT40TA3 PO (12:22)
[2017-01-08] MEDS ORDERED: Spironolactone PO (12:22)
[2017-01-08] MEDS ORDERED: LORA-474 PO (12:22)
[2017-01-08] MEDS ORDERED: POTA20TA3 PO (12:22)
== END 2017-01-08 14:00 | DRG 377 ==
LOC: NEPC 15:25 → NEDA 18:33 → INTOOBSV 18:33 → NEPGCP 21:07 → OBSVTOIN 01-01 21:04 → HCIN 01-02 02:04 → HIME 01-05 10:02 → HOCA 01-06 12:29
PROVIDERS: ADMIT Family Medicine; ATTEND Family Medicine
PROC: 0DB68ZX Excision of Stomach, Via Natural or Artificial Opening Endoscopic, Diagnostic (ICD-10-PCS; 2017-01-01)
PROC: 0W9G3ZX Drainage of Peritoneal Cavity, Percutaneous Approach, Diagnostic (ICD-10-PCS; principal; 2017-01-05)
PROC: 5A09357 Assistance with Respiratory Ventilation, Less than 24 Consecutive Hours, Continuous Positive Airway Pressure (ICD-10-PCS; 2017-01-05)
PROC: 0DBH8ZX Excision of Cecum, Via Natural or Artificial Opening Endoscopic, Diagnostic (ICD-10-PCS; 2017-01-07)
DX: K92.1 Melena (principal); J96.01 Acute respiratory failure with hypoxia; L89.151 Pressure ulcer of sacral region, stage 1; D69.59 Other secondary thrombocytopenia; D62 Acute posthemorrhagic anemia; K70.31 Alcoholic cirrhosis of liver with ascites; I50.9 Heart failure, unspecified; E86.0 Dehydration; Z85.46 Personal history of malignant neoplasm of prostate; Z92.3 Personal history of irradiation; Z86.73 Personal history of transient ischemic attack (TIA), and cerebral infarction without residual deficits; E11.9 Type 2 diabetes mellitus without complications; I10 Essential (primary) hypertension; F17.210 Nicotine dependence, cigarettes, uncomplicated; F10.20 Alcohol dependence, uncomplicated; R47.81 Slurred speech; K72.90 Hepatic failure, unspecified without coma; R29.6 Repeated falls; M54.5 Low back pain; M25.511 Pain in right shoulder; Z80.6 Family history of leukemia; Z80.0 Family history of malignant neoplasm of digestive organs; F41.9 Anxiety disorder, unspecified; K29.70 Gastritis, unspecified, without bleeding; D12.0 Benign neoplasm of cecum; K29.80 Duodenitis without bleeding; R14.0 Abdominal distension (gaseous); E87.6 Hypokalemia; R53.83 Other fatigue
CPT/HCPCS: 32554; 36600; 49083; 70450; 71010; 74177; 76705; 76775; 76937; 80048; 80053; 80076; 80307; 81001; 82042; 82140; 82550; 82607; 82746; 82805; 82945; 82948; 83615; 83690; 83735; 83880; 84157; 84443; 85014; 85018; 85025; 85027; 85610; 85730; 87070; 87205; 87641; 88112; 88305; 88312; 89051; 93005; 93306; 94002; 94640; 94664; 96374; 96375; C1729; C9113; G0378; G8987-GP; G8988-GP; J1940; J1956; J2060; J2270; J2370; J2405; J3480; J7030; J7042; J7613; P9047; Q9967